=== PATIENT | female | born 1990 | race Caucasian/White ===

== ENCOUNTER 2023-06-29 10:54 | Inpatient (IN) ==
[2023-06-29] MEDS ORDERED: ONDANSETRON INJ 2 MG/ML 2 ML VIAL IV STA ×2 (11:44→15:32)
[2023-06-29] MEDS ORDERED: SODIUM CHLORIDE 0.9% 1,000 ML IV STA (11:44)
[2023-06-29] MEDS ORDERED: KETOROLAC TROMETHAMINE 15 MG/ML VIAL IV STA (11:44)
[2023-06-29] MEDS ORDERED: MoRPHine SULFATE 4 MG/ML 1 ML CARP\\VIAL IV STA ×2 (11:44→13:13)
[2023-06-29] MEDS ORDERED: PROMETHAZINE 6.25 MG/50.25 ML BAG IV STA (11:45)
[2023-06-29 12:02] LABS: Basophils # (auto) 0.06 K/uL (0.00-0.20); Basophils % (auto) 0.6 %; Hematocrit (blood only) 44.5 % (37.0-47.0); Immature Granulocytes # (auto) 0.04 K/uL (0.01-0.20); Immature Granulocytes % (auto) 0.4 %; Lymphocytes # (auto) 1.97 K/uL (1.20-3.40); Lymphocytes % (auto) 18.9 %; Mean Corpuscular Hemoglobin 29.9 pg (25.0-34.0); Mean Corpuscular Hgb Conc 33.7 g/dL (32.0-36.0); Mean Corpuscular Volume 88.6 fL (80.0-100.0); Mean Platelet Volume 10.7 fL (9.4-12.4); Monocytes # (auto) 0.91 K/uL (0.11-0.59); Monocytes % (auto) 8.7 %; Neutrophils # (auto) 7.34 K/uL (1.40-6.50); Neutrophils % (auto) 70.4 %; Platelet Count 567 K/uL (130-400); RDW Coefficient of Variation 12.4 % (11.5-14.5); RDW Standard Deviation 40.4 fL (36.4-46.3); Red Blood Count 5.02 M/uL (4.20-5.40); White Blood Count 10.42 K/ul (4.8-10.8)
--- NOTE | 2023-06-29 12:10 | Emergency Department Note ---
Impression & Plan Acute left flank pain, Renal colic, Vomiting, UTI (urinary tract infection), Hypokalemia ED Provider Note NAME: LEYLA MONTANEZ AGE: 33 SEX: F : 1990 ARRIVES VIA: Walk-In INFORMANT: [Patient] ED PROVIDER(S): [Juan Abreu MD] CHIEF COMPLAINT: Flank pain HISTORY OF PRESENT ILLNESS: The patient is a 33-year-old female who presents to the ER with left flank pain and some nausea and vomiting that began at 530 this morning, about 6 hours ago. The patient states she took some Aleve which helped for a while but the pain has returned. She has noticed some slight cough lately. There has been no fever, no urinary complaints. She has not fallen or suffered trauma. She thinks that the left flank pain is worse with certain movements. She has a history of ovarian cysts as well as kidney stones. Last menstrual cycle was about a week ago. PMHx/PSHx/Social Hx: See Below PHYSICAL EXAM: GENERAL: Patient is in mild distress from pain. HEENT: No acute trauma, normocephalic atraumatic, mucous membranes moist, no nasal congestion. NECK: No stridor, no adenopathy, no meningismus, trachea is midline. LUNGS: Clear to auscultation bilaterally, no wheeze, no rhonchi, breath sounds equal. HEART: Without murmurs gallops or rubs, regular rate and rhythm. ABDOMEN: Soft, mildly tender along the entire left side of the abdomen, no distention or peritonitis. EXTREMITIES: No cyanosis, full range of motion of all the joints without pain or difficulty. NEUROLOGIC: Oriented x 3, no acute motor or sensory deficits, no focal weakness. SKIN: No jaundice, no diaphoresis. Back: Left flank discomfort to palpate and percuss as well as move. DIFFERENTIAL DIAGNOSIS: Renal colic, pneumonia, musculoskeletal pain, ovarian cyst, hydronephrosis, UTI, among others. EMERGENCY DEPARTMENT PROCEDURES: MEDICAL DECISION MAKING: There is no leukocytosis or concerning anemia. Platelet count is somewhat elevated at 567. Potassium was low at 3, no renal failure. No concerning liver enzyme elevation. No evidence for pancreatitis. testing was negative. Urinalysis shows potential infection versus contamination. Abdominal and pelvis CT shows a distal left ureteral stone causing hydronephrosis. No acute surgical process by CT imaging. Chest x-ray did not show pneumonia, pneumothorax or free air. On exam, the patient was in pain and nauseated. She had left flank discomfort with palpation, percussion and movement. The patient received IV saline, 1.5 L. She was given oral Flomax to help with stone passage. She received IV Phenergan, IV Zofran, IV potassium, IV Toradol. She was given IV morphine as needed for pain control. She was given IV ceftriaxone for the potential UTI. Patient was here for several hours and persisted with pain and nausea despite numerous medications administered. I do think she requires a hospital stay for symptom control. Of note, because of the potential UTI coupled with the ureteral stone, I did contact Dr. Lugo of urology. No emergent urologic intervention felt warranted unless the patient would become unstable. I did speak with the telephonic nurse case manager, I spoke with the on-call hospitalist. The patient is in no condition to be discharged home. Prior/Outside records/notes reviewed: ED visit note from 04/22/2023 discussing her presentation for an ovarian cyst. Imaging/x-ray results per my interpretation: Chest x-ray does not show mediastinal widening, pneumonia or free air. There is no pneumothorax. Chronic Medical/Social conditions affecting care: Obesity. Care/Management discussed with: Case management, the on-call hospitalist. Urology-Dr. Lugo. Level of care consideration(s): After review of the information above and other included data: --I believe the patient requires escalation of care to admission DISPOSITION: Admission with urology consult Past Med/Surg History Medical History Hyperinsulinemia Iron deficiency Polycystic ovaries Obesity, morbid, BMI 40.0-49.9 HTN (hypertension) Kidney stones Stomach problems Surgical History Hx of cholecystectomy Family History Other Diabetes Social History Smoking Status: Never smoker Preferred Language: Cambodian Feels Safe at Home: Yes Allergies Allergies Allergy/AdvReac Type Severity Reaction Status Date / Time No Known Allergies Allergy Unverified 10/27/19 10:03 Home Meds Home Medications Medication Instructions Recorded Confirmed omeprazole 20 mg tablet,delayed 20 mg PO QAM 05/18/19 06/29/23 release amlodipine 5 mg tablet 5 mg PO QAM 06/29/23 06/29/23 hydrochlorothiazide 25 mg tablet 25 mg PO QAM 06/29/23 06/29/23 iron 1 tab PO .EVERY OTHER DAY 06/29/23 06/29/23 metformin 500 mg tablet 500 mg PO BID 06/29/23 06/29/23 metoprolol succinate 100 mg 100 mg PO QAM 06/29/23 06/29/23 tablet,extended release 24 hr Previous Rx's Medication Instructions Recorded ondansetron 4 mg disintegrating 4 mg PO Q8H PRN nausea and 10/27/19 tablet vomiting #10 tabs Results & Data (ED) Vital Signs Vital Signs - 24 hr 06/29/23 11:16 06/29/23 11:31 06/29/23 11:34 Temperature 36.4 C L Temperature Source Temporal Artery Scan Pulse Rate 87 87 Pulse Rate from SpO2 Sensor Respiratory Rate 16 16 Respiratory Effort / Characteristics Non-Labored Spontaneous Respiratory Depth Normal Blood Pressure 182/124 H 136/85 Blood Pressure Mean 143 107 Pulse Oximetry 100 Oxygen Delivery Method Room Air Sepsis Recent Fever Within 48 Hours No Sepsis New/Unexplained Change in Mental Status No Sepsis Action Taken by Nursing No Action Required 06/29/23 11:34 06/29/23 11:37 06/29/23 12:00 Temperature Temperature Source Pulse Rate 92 H 90 86 Pulse Rate from SpO2 Sensor 91 H 88 Respiratory Rate 13 23 Respiratory Effort / Characteristics Respiratory Depth Blood Pressure Blood Pressure Mean Pulse Oximetry 100 100 Oxygen Delivery Method Sepsis Recent Fever Within 48 Hours Sepsis New/Unexplained Change in Mental Status Sepsis Action Taken by Nursing 06/29/23 12:30 06/29/23 13:00 06/29/23 13:30 Temperature Temperature Source Pulse Rate 71 67 89 Pulse Rate from SpO2 Sensor 71 67 90 Respiratory Rate 17 15 22 Respiratory Effort / Characteristics Respiratory Depth Blood Pressure Blood Pressure Mean Pulse Oximetry 95 97 97 Oxygen Delivery Method Sepsis Recent Fever Within 48 Hours Sepsis New/Unexplained Change in Mental Status Sepsis Action Taken by Nursing 06/29/23 14:00 06/29/23 14:30 06/29/23 14:30 Temperature Temperature Source Pulse Rate 84 Pulse Rate from SpO2 Sensor 84 97 H Respiratory Rate 16 Respiratory Effort / Characteristics Respiratory Depth Blood Pressure 138/89 Blood Pressure Mean 116 Pulse Oximetry 94 99 Oxygen Delivery Method Sepsis Recent Fever Within 48 Hours Sepsis New/Unexplained Change in Mental Status Sepsis Action Taken by Nursing 06/29/23 15:00 06/29/23 15:30 06/29/23 16:00 Temperature Temperature Source Pulse Rate Pulse Rate from SpO2 Sensor 95 H 104 H 102 H Respiratory Rate 18 Respiratory Effort / Characteristics Respiratory Depth Blood Pressure Blood Pressure Mean Pulse Oximetry 96 96 95 Oxygen Delivery Method Sepsis Recent Fever Within 48 Hours Sepsis New/Unexplained Change in Mental Status Sepsis Action Taken by Nursing 06/29/23 16:30 06/29/23 17:00 06/29/23 17:40 Temperature Temperature Source Pulse Rate 74 Pulse Rate from SpO2 Sensor 96 H 93 H Respiratory Rate 20 20 Respiratory Effort / Characteristics Respiratory Depth Blood Pressure 140/84 108/82 Blood Pressure Mean 102 Pulse Oximetry 98 94 98 Oxygen Delivery Method Room Air Sepsis Recent Fever Within 48 Hours Sepsis New/Unexplained Change in Mental Status Sepsis Action Taken by Shelter Medications Current Medication List: was personally reviewed by me Laboratory Data Attestation: I reviewed the patient's lab results. 06/29/23 11:25 06/29/23 11:25 Lab Results 06/29/23 06/29/23 Range/Units 11:25 14:30 WBC 10.42 (4.8-10.8) K/ul RBC 5.02 (4.20-5.40) M/uL Hgb 15.0 (12.0-16.0) g/dl Hct 44.5 (37.0-47.0) % MCV 88.6 (80.0-100.0) fL MCH 29.9 (25.0-34.0) pg MCHC 33.7 (32.0-36.0) g/dL RDW Std Deviation 40.4 (36.4-46.3) fL RDW Coeff of Ashkan 12.4 (11.5-14.5) % Plt Count 567 H (130-400) K/uL MPV 10.7 (9.4-12.4) fL Immature Gran % (Auto) 0.4 % Neut % (Auto) 70.4 % Lymph % (Auto) 18.9 % [place] % (Auto) 8.7 % Eos % (Auto) 1.0 % Baso % (Auto) 0.6 % Neut # (Auto) 7.34 H (1.40-6.50) K/uL Lymph # (Auto) 1.97 (1.20-3.40) K/uL [place] # (Auto) 0.91 H (0.11-0.59) K/uL Eos # (Auto) 0.10 (0.00-0.50) K/uL Baso # (Auto) 0.06 (0.00-0.20) K/uL Immature Gran # (Auto) 0.04 (0.01-0.20) K/uL Sodium 139 (136-145) mmol/L Potassium 3.0 L (3.5-5.1) mmol/L Chloride 99 (98-107) mmol/L Carbon Dioxide 30 (21-32) mmol/L Anion Gap 10 (3-11) BUN 15 (6-23) mg/dl Creatinine 0.84 (0.6-1.2) mg/dl Est Cr Clr Drug Dosing 137.8 ml/min Est GFR ( Amer) 105.8 ml/min Est GFR (Non-Af Amer) 91.3 ml/min BUN/Creatinine Ratio 17.9 (10-20) Glucose 104 H (70-99(Fasting)) mg/dl Calcium 9.0 (8.6-10.3) mg/dl Total Bilirubin 0.8 (0.2-1.0) mg/dl AST 16 (13-39) U/L ALT 22 (7-52) U/L Alkaline Phosphatase 75 (34-104) U/L Total Protein 7.7 (6.0-8.3) gm/dl Albumin 4.0 (3.4-5.0) gm/dl Globulin 3.7 (2.5-4.0) gm/dl Albumin/Globulin Ratio 1.1 (0.9-2) Lipase 39 (11-82) U/L HCG, Qual Negative (Negative) Urine Color [place] Urine Appearance Turbid A (Clear) Urine pH 6.0 (4.5-7.5) Ur Specific [place] 1.027 (1.000-1.030) Urine Protein 2+ H (Negative) Urine Glucose (UA) Negative (Negative) Urine Ketones 1+ H (Negative) Urine Blood 3+ H (Negative) Urine Nitrite Negative (Negative) Urine Bilirubin 1+ H (Negative) Urine Urobilinogen Negative (Negative) Ur Leukocyte Esterase 3+ H (Negative) Urine WBC (Auto) >30 H (0-5) /hpf Urine RBC (Auto) >30 H (0-4) /hpf U Hyaline Cast (Auto) Not Reportable U Epithel Cells (Auto) >30 H (0-5) /lpf Urine Bacteria (Auto) 1+ H (Negative) Administered Medications Discontinued Medications Sodium Chloride (Nss) 1,000 mls @ 999 mls/hr IV .Q1H1M STA Stop: 06/29/23 12:44 Last Infusion: 06/29/23 13:46 Dose: Infused Documented By: Admin: 06/29/23 11:58 Dose: 999 mls/hr Documented By: HS Promethazine HCl (Phenergan) 6.25 mg in 50.25 mls @ 201 mls/hr IV NOW STA Stop: 06/29/23 11:59 Last Infusion: 06/29/23 13:46 Dose: Infused Documented By: Admin: 06/29/23 11:59 Dose: 201 mls/hr Documented By: HS Potassium Chloride (K Evert / Wtr) 10 meq in 100 mls @ 100 mls/hr IV ONE ONE Stop: 06/29/23 13:44 Last Infusion: 06/29/23 13:55 Dose: Infused Documented By: Admin: 06/29/23 12:55 Dose: 100 mls/hr Documented By: HS Sodium Chloride (Nss) 500 mls @ 999 mls/hr IV .Q31M ONE Stop: 06/29/23 13:43 Last Infusion: 06/29/23 14:22 Dose: Infused Documented By: Admin: 06/29/23 13:51 Dose: 999 mls/hr Documented By: MT Ceftriaxone Sodium (Rocephin) 2,000 mg in 50 mls @ 100 mls/hr IV NOW STA Stop: 06/29/23 16:03 Last Infusion: 06/29/23 17:36 Dose: Infused Documented By: Admin: 06/29/23 15:38 Dose: 100 mls/hr Documented By: HS Ketorolac Tromethamine (Ketorolac Tromethamine 15 Mg/Ml Vial) 15 mg IV NOW STA Stop: 06/29/23 11:45 Last Admin: 06/29/23 11:58 Dose: 15 mg Documented By: HS Morphine Sulfate (Morphine Sulfate 4 Mg/Ml 1 Ml Carp\Vial) 4 mg IV NOW STA Stop: 06/29/23 11:45 Last Admin: 06/29/23 11:59 Dose: 4 mg Documented By: HS Morphine Sulfate (Morphine Sulfate 4 Mg/Ml 1 Ml Carp\Vial) 4 mg IV NOW STA Stop: 06/29/23 13:14 Last Admin: 06/29/23 13:50 Dose: 4 mg Documented By: MT Ondansetron HCl (Ondansetron Inj 2 Mg/Ml 2 Ml Vial) 4 mg IV NOW STA Stop: 06/29/23 11:45 Last Admin: 06/29/23 11:58 Dose: 4 mg Documented By: HS Ondansetron HCl (Ondansetron Inj 2 Mg/Ml 2 Ml Vial) 4 mg IV NOW STA Stop: 06/29/23 15:33 Last Admin: 06/29/23 15:36 Dose: 4 mg Documented By: HS Tamsulosin HCl (Tamsulosin Hcl 0.4 Mg Cap) 0.4 mg PO NOW ONE Stop: 06/29/23 13:14 Last Admin: 06/29/23 13:50 Dose: 0.4 mg Documented By: MT Imaging Data Radiologist's Impression: Abdomen/Pelvis CT 06/29/23 11:[address] WITHOUT CONTRAST CT DOSE: 1648.11 mGy.cm HISTORY: left flank pain TECHNIQUE: Multiaxial CT images of the abdomen and pelvis were performed without contrast. A dose lowering technique was utilized adhering to the principles of ALARA. COMPARISON STUDY: Abdomen and pelvis CT 04/22/2023. FINDINGS: Mild elevation of the right hemidiaphragm with right basilar linear densities consistent with subsegmental atelectasis. This remains unchanged. Stable 4 mm subpleural nodule on the right minor fissure on image 20. No pneumoperitoneum. No pneumatosis. No acute fractures. Mild hepatic steatosis. Cholecystectomy. The unenhanced pancreas, spleen, and adrenal glands are unremarkable. No renal calculi. There is mild left hydronephrosis secondary to an obstructing 4 mm stone within the left ureteropelvic junction on image 212. No retroperitoneal lymphadenopathy. Normal caliber abdominal aorta. The bladder is decompressed and not well evaluated. The uterus is unremarkable. Hypodense lesions seen within the bilateral ovaries/adnexa, unchanged. The largest on the right measures approximately 3.9 cm. These favor ovarian cysts as seen on the prior pelvic ultrasound. Smaller hypodense lesions have a tubular appearance. Therefore, this could represent bilateral hydrosalpinges. No pelvic free fluid. No bowel wall thickening or obstruction. Normal appendix. IMPRESSION: 1. A 4 mm obstructing stone within the left ureteropelvic junction resulting in mild left hydronephrosis. 2. Hepatic steatosis. 3. Cholecystectomy. 4. Stable 4 mm subpleural nodule on the right minor fissure. This is indeterminate but likely benign given the patient's age. 5. Hypodense lesions seen within the bilateral ovaries/adnexa, unchanged. The largest on the right measures approximately 3.9 cm. These favor ovarian cysts as seen on the prior pelvic ultrasound. Smaller hypodense lesions have a tubular appearance. Therefore, this could represent bilateral hydrosalpinges. ACT 112: Negative or not required by law. Electronically signed by: Don Chua M.D. 06/29/2023 12:58 PM Chest X-Ray 06/29/23 11:44 XR chest 1V portable HISTORY: left flank pain COMPARISON: Chest 02/26/2010. FINDINGS: No pneumothorax. No pleural effusions. The heart is normal in size. The left lung is clear. There is elevation of the right hemidiaphragm with right basilar linear densities consistent with subsegmental atelectasis. IMPRESSION: Elevated right hemidiaphragm with right basilar subsegmental atelectasis. ACT 112: Negative or not required by law. Electronically signed by: Don Chua M.D. 06/29/2023 1:36 PM Discharge Plan Visit Data Chief Complaint: Flank Pain Stated Complaint: LEFT SIDE PAIN, VOMTING ED Provider: Juan Abreu Discharge Problem: Acute left flank pain, Renal colic, Vomiting, UTI (urinary tract infection), Hypokalemia Patient Disposition: Admitted As Inpatient Condition: Fair Forms Stand Alone Forms: [employer] Prescriptions Prescriptions: No Action omeprazole 20 mg Tablet,Delayed Release (Dr/Ec) 20 mg PO QAM ondansetron 4 mg tablet,disintegrating 4 mg PO Q8H PRN (Reason: nausea and vomiting) Qty: 10 0RF metformin 500 mg tablet 500 mg PO BID metoprolol succinate 100 mg tablet extended release 24 hr 100 mg PO QAM amlodipine 5 mg tablet 5 mg PO QAM hydrochlorothiazide 25 mg tablet 25 mg PO QAM iron 1 tab PO .EVERY OTHER DAY Referrals Referrals: Phil Pardo MD [Primary Care Provider] - Discharge Problem: Vomiting Qualifiers: Vomiting type: unspecified Nausea presence: with nausea Qualified Code(s): R 11.2 - Nausea with vomiting, unspecified UTI (urinary tract infection) Qualifiers: Urinary tract infection type: acute cystitis Hematuria presence: with hematuria Qualified Code(s): N30.01 - Acute cystitis with hematuria
[2023-06-29 12:13] LABS: Albumin Globulin Ratio 1.1 (0.9-2); BUN Creatinine Ratio 17.9 (10-20); Bilirubin,Total 0.8 mg/dl (0.2-1.0); Creatinine Clr Calc Pharmacy 137.8 ml/min; Est GFR (African American) 105.8 ml/min; Est GFR (Non-African American) 91.3 ml/min; Globulin 3.7 gm/dl (2.5-4.0); Total Protein 7.7 gm/dl (6.0-8.3)
[2023-06-29 12:16] LABS: Pregnancy Test, Serum Negative (Negative)
[2023-06-29] MEDS ORDERED: POTASSIUM CHLORIDE / WTR 10 MEQ/100 ML PLCT IV ONE (12:45)
--- NOTE | 2023-06-29 13:00 | CT Scan Report ---
ABDOMEN AND PELVIS CT WITHOUT CONTRAST CT DOSE: 1648.11 mGy.cm HISTORY: left flank pain TECHNIQUE: Multiaxial CT images of the abdomen and pelvis were performed without contrast. A dose lo wering technique was utilized adhering to the principles of ALARA. COMPARISON STUDY: Abdomen and pelvis CT 04/22/2023. FINDINGS: Mild elevation of the right hemidiaphragm with right basilar linear densities consistent wi th subsegmental atelectasis. This remains unchanged. Stable 4 mm subpleural nodule on the right minor fissure on image 20. No pneumoperitoneum. No pneumatosis. No acute fractures. Mild hepatic steatosis . Cholecystectomy. The unenhanced pancreas, spleen, and adrenal glands are unremarkable. No renal shahrzad culi. There is mild left hydronephrosis secondary to an obstructing 4 mm stone within the left ureter opelvic junction on image 212. No retroperitoneal lymphadenopathy. Normal caliber abdominal aorta. Th e bladder is decompressed and not well evaluated. The uterus is unremarkable. Hypodense lesions seen within the bilateral ovaries/adnexa, unchanged. The largest on the right measures approximately 3.9 c m. These favor ovarian cysts as seen on the prior pelvic ultrasound. Smaller hypodense lesions have a tubular appearance. Therefore, this could represent bilateral hydrosalpinges. No pelvic free fluid. No bowel wall thickening or obstruction. Normal appendix. IMPRESSION: 1. A 4 mm obstructing stone within the left ureteropelvic junction resulting in mild left hydronephro sis. 2. Hepatic steatosis. 3. Cholecystectomy. 4. Stable 4 mm subpleural nodule on the right minor fissure. This is indeterminate but likely benign given the patient's age. 5. Hypodense lesions seen within the bilateral ovaries/adnexa, unchanged. The largest on the right me asures approximately 3.9 cm. These favor ovarian cysts as seen on the prior pelvic ultrasound. Smalle r hypodense lesions have a tubular appearance. Therefore, this could represent bilateral hydrosalping es. ACT 112: Negative or not required by law. Electronically signed by: Don Chua M.D. 06/29/2023 12:58 PM
[2023-06-29] MEDS ORDERED: SODIUM CHLORIDE 0.9% 500 ML IV ONE (13:13)
[2023-06-29] MEDS ORDERED: TAMSULOSIN HCL 0.4 MG CAP PO ONE (13:13)
--- NOTE | 2023-06-29 13:37 | XRay Report ---
XR chest 1V portable HISTORY: left flank pain COMPARISON: Chest 02/26/2010. FINDINGS: No pneumothorax. No pleural effusions. The heart is normal in size. The left lung is clear. There is elevation of the right hemidiaphragm with right basilar linear densities consistent with carrion bsegmental atelectasis. IMPRESSION: Elevated right hemidiaphragm with right basilar subsegmental atelectasis. ACT 112: Negative or not required by law. Electronically signed by: Don Chua M.D. 06/29/2023 1:36 PM
[2023-06-29 14:52] LABS: Appearance Urine Turbid (Clear); Bacteria Urine Automated 1+ (Negative); Blood Urine 3+ (Negative); Color Urine Orange; Epithelial Cell Urine Auto >30 /lpf (0-5); Glucose Urine UA Negative (Negative); Ketones Urine 1+ (Negative); Leukocyte Esterase Urine 3+ (Negative); Nitrite Urine Negative (Negative); Protein Urine 2+ (Negative); RBC Urine Automated >30 /hpf (0-4); Specific Gravity Urine 1.027 (1.000-1.030); Urobilinogen Urine Negative (Negative); WBC Urine Automated >30 /hpf (0-5)
[2023-06-29 15:18] LABS: Bilirubin Urine 1+ (Negative)
[2023-06-29] MEDS ORDERED: cefTRIAXone SODIUM 2,000 MG/50 ML BAG IV STA (15:34)
--- NOTE | 2023-06-29 16:03 | History & Physical Report ---
Date of Service June 29, 2023 Assessment & Plan (1) Kidney stones: Plan: - Admit to med surg - Consult urology - UA appears to be grossly infected, follow urine culture, will order a urine straight cath per urology recs. - continue with IV antibiotics, BCx x 2 pending - Ceftriaxone IV started, will continue - CT abd/pelvis showing the 4 mm obstructing stone on the Left with hydronephrosis - Afebrile, WBC of 10.42 on admission. Cr and BUN are stable at 0.84/15. - Pain control ordered, NSS x 1 more L now. - Antiemetics ordered as pt is unable to tolerate po meds currently due to nausea (2) HTN (hypertension): Plan: - Metoprolol succinate 100 mg QAM to continue daily (3) Obesity, morbid, BMI 40.0-49.9: Plan: - Diet and exercise will need to be discussed prior to discharge. (4) Hypokalemia: Plan: - 3.0 on admission, will trend and add iv supplementation to total 50 meq as she is unable to tolerate po currently - Allow clear diet as tolerates (5) Polycystic ovaries: Plan: - Hx of such, has followed with Dr. Angulo as outpatient with director of corporate responsibility - Chronic, stable (6) Iron deficiency: Plan: - May continue iron supplementation (7) Hyperinsulinemia: Plan: - Last A1C was 5.3 on 05/04/23 - ISS with accuchecks achs while holding home metformin here DVT ppx:teds, scds Lines: 2 PIV FEN/GI: Cont NSS, clear liquids for now, urology is not planning on procedure at this time. Make NPO at midnight in case needs procedure tomorrow CODE: FULL Dispo: From home, likely to remain in the hospital x 1-2 days History of Present Illness Chief Complaint: Left flank pain Primary Care Provider: Phil Pardo MD This is a 33 yo F with PMHx UTI, morbid obesity with BMI of 44.7, hyperinsulinemia on metformin, HTN, iron deficiency, polycystic ovaries, who presents to the hospital with left flank pain. States she woke up with left sided flank pain around 0530 this morning which was associated with nausea and vomiting. She has proceeded to be vomiting throughout the day with waxing and waning pain. Pt took aleve this morning but didn't help. She was unable to take her other medications due to nausea. Mother is at bedside and supports the history. Pt notes that she previously had one kidney stone, but that this feels worse. Denies any fever, chills, but admits to having sweats. CT abd/pelvis reviewed and shows a 4 mm obstructing stone with mild left sided hydronephrosis. Afebrile, WBC of 10.42 on admission. Cr and BUN are stable at 0.84/15. Allergies Allergy/AdvReac Type Severity Reaction Status Date / Time No Known Allergies Allergy Unverified 10/27/19 10:03 Home Medications Medication Instructions Recorded Confirmed Type omeprazole 20 mg tablet,delayed 20 mg PO QAM 05/18/19 06/29/23 History release ondansetron 4 mg disintegrating 4 mg PO Q8H PRN nausea and 10/27/19 06/29/23 Rx tablet vomiting #10 tabs amlodipine 5 mg tablet 5 mg PO QAM 06/29/23 06/29/23 History hydrochlorothiazide 25 mg tablet 25 mg PO QAM 06/29/23 06/29/23 History iron 1 tab PO .EVERY OTHER DAY 06/29/23 06/29/23 History metformin 500 mg tablet 500 mg PO BID 06/29/23 06/29/23 History metoprolol succinate 100 mg 100 mg PO QAM 06/29/23 06/29/23 History tablet,extended release 24 hr Past Med/Surg History Medical History (Updated 06/29/23 @ 16:07 by Ellie Jerome PA-C) Hyperinsulinemia Iron deficiency Polycystic ovaries Obesity, morbid, BMI 40.0-49.9 HTN (hypertension) Kidney stones Stomach problems Surgical History Hx of cholecystectomy Family History Other Diabetes Social History Smoking Status: Never smoker Preferred Language: Russian Feels Safe at Home: Yes Review of Systems Review of Systems: Constitutional: No fever, sweats or chills Eyes: No diplopia, no worsening or blurred vision ENT: normal hearing, no trouble swallowing Respiratory: No cough, sputum, dyspnea at rest or on exertion Cardiovascular: No chest pain, tightness or palpitations Abdomen: + left sided flank pain, + nausea, +vomiting, denies diarrhea or constipation Musculoskeletal: No joint pain, calf pain, swelling Neurologic: No weakness, numbness/tingling, or balance problems Psychiatric: No anxiety or depression Skin: No rash or itch Physical Exam Physical Exam: General: awake, alert, no apparent distress, morbidly obese white female Head: Normocephalic, atraumatic ENT: PERRL, EOMI, no pharyngeal exudate, mucous membranes moist Chest: Clear to auscultation, on room air, no adventitious breath sounds Cardiac: Regular rate and rhythm, no murmur, no JVD, normal peripheral pulses, good capillary refill Abdominal: NABS x 4 quadrants, soft, nondistended, nontender to palpation, no rebound or guarding Back: CVA tenderness present on Left side Extremities: Normal inspection, no peripheral edema or erythema, calfs nontender to palpation Psych: Normal mood and affect Neuro: AAO x 3, strength intact bilaterally and rated 5/5, no motor deficits, speech is clear, no peripheral sensory deficits Results & Data Results & Data Vital Signs (Past 12 Hours) Vital Signs Temp Pulse Resp BP Pulse Ox O2 Del Method 06/29/23 15:00 18 96 06/29/23 14:30 138/89 06/29/23 14:30 99 06/29/23 14:00 84 16 94 06/29/23 13:30 89 22 97 06/29/23 13:00 67 15 97 06/29/23 12:30 71 17 95 06/29/23 12:00 86 23 100 06/29/23 11:37 90 06/29/23 11:34 92 H 13 100 06/29/23 11:34 136/85 06/29/23 11:31 87 16 06/29/23 11:16 36.4 C L 87 16 182/124 H 100 Room Air Laboratory Results 06/29/23 14:30 Urine Culture - Pending Urine,Clean Catch 06/29/23 06/29/23 14:30 11:25 WBC 10.42 RBC 5.02 Hgb 15.0 Hct 44.5 MCV 88.6 MCH 29.9 MCHC 33.7 RDW Std Deviation 40.4 RDW Coeff of Ashkan 12.4 Plt Count 567 H MPV 10.7 Immature Gran % (Auto) 0.4 Neut % (Auto) 70.4 Lymph % (Auto) 18.9 Hyde % (Auto) 8.7 Eos % (Auto) 1.0 Baso % (Auto) 0.6 Neut # (Auto) 7.34 H Lymph # (Auto) 1.97 Hyde # (Auto) 0.91 H Eos # (Auto) 0.10 Baso # (Auto) 0.06 Immature Gran # (Auto) 0.04 Sodium 139 Potassium 3.0 L Chloride 99 Carbon Dioxide 30 Anion Gap 10 BUN 15 Creatinine 0.84 Est Cr Clr Drug Dosing 137.8 Est GFR ( Amer) 105.8 Est GFR (Non-Af Amer) 91.3 BUN/Creatinine Ratio 17.9 Glucose 104 H Calcium 9.0 Total Bilirubin 0.8 AST 16 ALT 22 Alkaline Phosphatase 75 Total Protein 7.7 Albumin 4.0 Globulin 3.7 Albumin/Globulin Ratio 1.1 Lipase 39 HCG, Qual Negative Urine Color [place] Urine Appearance Turbid A Urine pH 6.0 Ur Specific [place] 1.027 Urine Protein 2+ H Urine Glucose (UA) Negative Urine Ketones 1+ H Urine Blood 3+ H Urine Nitrite Negative Urine Bilirubin 1+ H Urine Urobilinogen Negative Ur Leukocyte Esterase 3+ H Urine WBC (Auto) >30 H Urine RBC (Auto) >30 H U Hyaline Cast (Auto) Not Reportable U Epithel Cells (Auto) >30 H Urine Bacteria (Auto) 1+ H Diagnostic Findings Abdomen/Pelvis CT 06/29/23 11:[address] WITHOUT CONTRAST CT DOSE: 1648.11 mGy.cm HISTORY: left flank pain TECHNIQUE: Multiaxial CT images of the abdomen and pelvis were performed without contrast. A dose lowering technique was utilized adhering to the principles of ALARA. COMPARISON STUDY: Abdomen and pelvis CT 04/22/2023. FINDINGS: Mild elevation of the right hemidiaphragm with right basilar linear densities consistent with subsegmental atelectasis. This remains unchanged. Stable 4 mm subpleural nodule on the right minor fissure on image 20. No pneumoperitoneum. No pneumatosis. No acute fractures. Mild hepatic steatosis. Cholecystectomy. The unenhanced pancreas, spleen, and adrenal glands are unremarkable. No renal calculi. There is mild left hydronephrosis secondary to an obstructing 4 mm stone within the left ureteropelvic junction on image 212. No retroperitoneal lymphadenopathy. Normal caliber abdominal aorta. The bladder is decompressed and not well evaluated. The uterus is unremarkable. Hypodense lesions seen within the bilateral ovaries/adnexa, unchanged. The largest on the right measures approximately 3.9 cm. These favor ovarian cysts as seen on the prior pelvic ultrasound. Smaller hypodense lesions have a tubular appearance. Therefore, this could represent bilateral hydrosalpinges. No pelvic free fluid. No bowel wall thickening or obstruction. Normal appendix. IMPRESSION: 1. A 4 mm obstructing stone within the left ureteropelvic junction resulting in mild left hydronephrosis. 2. Hepatic steatosis. 3. Cholecystectomy. 4. Stable 4 mm subpleural nodule on the right minor fissure. This is indeterminate but likely benign given the patient's age. 5. Hypodense lesions seen within the bilateral ovaries/adnexa, unchanged. The largest on the right measures approximately 3.9 cm. These favor ovarian cysts as seen on the prior pelvic ultrasound. Smaller hypodense lesions have a tubular appearance. Therefore, this could represent bilateral hydrosalpinges. ACT 112: Negative or not required by law. Electronically signed by: Don Chua M.D. 06/29/2023 12:58 PM Chest X-Ray 06/29/23 11:44 XR chest 1V portable HISTORY: left flank pain COMPARISON: Chest 02/26/2010. FINDINGS: No pneumothorax. No pleural effusions. The heart is normal in size. The left lung is clear. There is elevation of the right hemidiaphragm with right basilar linear densities consistent with subsegmental atelectasis. IMPRESSION: Elevated right hemidiaphragm with right basilar subsegmental atelectasis. ACT 112: Negative or not required by law. Electronically signed by: Don Chua M.D. 06/29/2023 1:36 PM Code Status & VTE Plan Code Status Full code - discussed with pt and mother at bedside Supervising Physician Co-Signing Physician Notes I have seen and discussed the case with the collaborating MINNIE. I agree with the above H&P. I have reviewed and confirmed the patients medical history, the findings on physical examination, and the patients diagnosis and treatment plan with Queenie HARTMAN and agree with the information documented. In short, Ms. Ladd is a 33 year old woman with past medical history of DMTII, HTN, and morbid obesity admitted due to acute urinary tract infection iso obstructing nephrolithiasis. Labs also notable for K of 3.0. Exam revealed a very sickly looking woman, dry heaving, endorsing left flank pain with CVA tenderness. Plan #Obstructing nephrolithiasis #Acute urinary tract infection -Continue CTX, follow culutures -Urology consult for review/intervention, NPO Rest of plan as above.
[2023-06-29] MEDS ORDERED: PROCHLORPERAZINE 10 MG in SYRINGE 8 ML IV PRN (16:29)
[2023-06-29] MEDS ORDERED: CARBOHYDRATES FOR HYPOGLYCEMIA PO PRN (17:58)
[2023-06-29] MEDS ORDERED: GLUCAGON FOR INJ 1 MG VIAL SQ PRN (17:58)
[2023-06-29] MEDS ORDERED: SODIUM CHLORIDE 0.9% 1,000 ML IV SCH (17:58)
[2023-06-29] MEDS ORDERED: DEXTROSE 50% 50 ML SYRINGE IV PRN (17:58)
[2023-06-29] MEDS ORDERED: cefTRIAXone SODIUM 1,000 MG in DEXTROSE 5 % MINI-B 50 ML IV SCH (17:58)
[2023-06-29] MEDS ORDERED: ACETAMINOPHEN 325 MG TAB PO PRN (17:58)
[2023-06-29] MEDS ORDERED: GLUCOSE 10 TAB/TUBE PO PRN (17:58)
[2023-06-29] MEDS ORDERED: GLUCOSE 40% GEL 15 GM TUBE PO PRN (17:58)
[2023-06-29] MEDS ORDERED: ONDANSETRON INJ 2 MG/ML 2 ML VIAL IV PRN (17:58)
[2023-06-29] MEDS ORDERED: MoRPHine SULFATE 2 MG/ML CARP IV PRN (17:58)
--- OUTSIDE RECORDS SUMMARY | 2023-06-29 18:01 | External Medical Summary | Summary of Care ---
Author Name Unknown Organization [facility] Address [address] [place] [address] Phone [phone] Care Team Providers Care Tile Applicator Name Role Phone Phil Pardo MD Primary Care Provider [phone] Reason for Visit * Reason Comments Consultation * Evaluate & Treat - Unlimited Visits (Within 30 days (routine)) - Pending Review Specialty Diagnoses / Procedures Referred By Kimberly t Referred To Contact Obstetrics/Gynecology / Gynecology Obstetrics Diagnoses Cyst of ovary, unspecified laterality Deandra Cunha PA-C [address] [place] [address] Referral ID Status Reason Start Date Expiration Date Visits Requested Visits Authorized [id number] Pending Review Specialty Services Required [phone] Encounter Details Date Type Department Care Team (Late st Contact Info) Description 06/02/2023 2:00 PM EST Office Visit Gynecology/Obstetric s Toyin Shin [address] [place] [address] Prabha Angulo MD [address] [place] [id number] Bilateral ovarian cysts* Allergies No known active allergiesdocumented as of this encounter (statuses as of 06/02/2023) Medications Medication Sig Dispensed Refills Start Date End Date Status omeprazole (PRILOSEC) 20 MG CPDR Take 1 Capsule by mouth in the morning. 0 Active Ferrous Sulfate (IRON) 325 (65 Fe) MG TABS Take 1 Tablet by mouth every other day. 0 Active Triamcinolone Acetonide 0.1 % External Cream (Aristocort) Apply to affected skin behind the ears twice per day as needed 45 g 1 12/07/2022 Active amLODIPine Besylate 5 MG Oral Tablet (Norvasc) TAKE 1 TABLET BY MOUTH IN THE MORNING 90 Tablet 2 02/20/2023 Active Metoprolol Succinate ER 100 MG Oral Tablet Extended Release 24 Hour (toPROL XL) TAKE 1 TABLET BY MOUTH IN THE MORNING 90 Tablet 1 03/05/2023 Active hydroCHLOROthiazide 25 MG Oral Tablet (Hydrodiuril) TAKE 1 TABLET BY MOUTH ONCE DAILY IN THE MORNING 90 Tablet 1 03/05/2023 Active metFORMIN HCl 500 MG Oral Tablet (Glucophage) Take 1 Tablet by mouth 2 times a day with morning and evening meals. 60 Tablet 5 05/05/2023 Active documented as of this encounter (statuses as of 06/02/2023) Active Problems Problem Noted Date Diagnosed Date Hyperinsulinemia 05/05/2023 Polycystic ovaries 05/01/2023 HTN, goal below 140/90 06/08/2022 Iron deficiency 06/08/2022 Gastroesophageal reflux disease 06/08/2022 Body mass index (BMI) of 50.0 to 59.9 in adult 0 11/17/2020 Overview: Per Obesity protocol ADVANCE DIRECTIVE INFORMATION 08/09/2005 Overview: Not applicable (under age of 18) FLAT FOOT, FLEXIBLE 04/04/2005 Other psoriasis 03/06/2002 documented as of this encounter (statuses as of 06/02/2023) Resolved Problems Problem Noted Date Diagnosed Date Resolved Date Acute swimmer's ear of right side 01/12/2018 08/04/2021 INFEC OTITIS EXTERNA, RIGHT 01/18/2010 08/04/2021 Otalgia 01/18/2010 08/04/2021 TENOSYNOVITIS FOOT, RIGHT MEDIAL 04/04/2005 08/04/2021 OVERWEIGHT 04/04/2005 2016 OBESITY, UNSPECIFIED 05/05/2003 022 documented as of this encounter (statuses as of 06/02/2023) Immunizations Name Administration Dates Next Due COVID-19 mRNA, LNP-s, No Pre serve, 2-Dose Series (Pfizer) 07/02/2021,10/17/2020,09/26/2020 HPV Vaccine, 4-Valent 11/06/2007,07/04/2007,04/09 Meningococcal Conjugate Vacc ine (Menactra/Menveo) 04/27/2007 PPD 05/20/2011,05/15/2007,05/01/2007 SEASONAL INFLUENZA, PF, 6 M & Above, IM , (FLULAVAL or FLUZONE) 04/29/2023,04/29/2023,04/16/2022,03/10,04/08/2020,04/01/2019,05/18/20 18 Seasonal Influenza, Quadriva lent, No Preserve, IM 06/12/2015 06/12/2016 Seasonal Influenza, Split, I IV3, With Preserve, Inj 05/09/2011,05/07/2010 TDAP (age 10 and older)(Boostrix) 2016 02/07/2026 TDAP (age 11 and older)(Adacel) 03/23/2006 Varicella Vaccine (Chicken Pox) 04/27/2007 documented as of this encounter Social History Tobacco Use Types Packs/Day Years Used Date Smoking Tobacco: Never Passive Smoke Exposure: Never Smokeless Tobacco: Never Comments:non smoking househo ld Alcohol Use Standard Drinks/Week Comments No 0 (1 standard drink = 0.6 oz pur e alcohol) PHQ-2 Answer Date Recorded PHQ Adult Total Score 0 06/08/2022 Hunger Vital Sign Answer Date Recorded Within the past 12 months, y ou worried that your food would run out before you got the money to buy more. Never true 06/08/20 22 Within the past 12 months, t he food you bought just didn't last and you didn't have money to get more. Never true 06/08/2022 Sex and Gender Information Value Date Recorded Sex Assigned at Female 05/22/2019 6:01 PM EST Gender Identity Female 05/22/2019 6:01 PM EST Sexual Orientation Straight 05/22/2019 6: 01 PM EST Job Start Date Occupation Industry Not on file Not on file Not on file documented as of this encounter Last Filed Vital Signs Vital Sign Reading Time Taken Comments Blood Pressure 144/82 06/02/2023 1:57 PM EST Pulse - - Temperature - - Respiratory Rate - - Oxygen Saturation - - Inhaled Oxygen Concentration - - Weight 134.7 kg (297 lb) 06/02/2023 1:57 PM EST Height 160 cm (5' 3") 06/02/2023 1:57 PM EST Body Mass Index 52.61 06/02/2023 1:57 PM EST documented in this encounter Progress Notes * Prabha Angulo MD - 06/02/2023 2:21 PM EST Patient Name: Khloe Ladd Patient New Patient referred by Deandra Cunha PA-C Reason for Visit Bilateral ovarian cysts CC: Bilateral ovarian cysts Context: (HPI) 33 year old with LMP 05/22/2023 presents for ED follow-up. Patient presented tot ED on 04/22/2023 with blood in her stool and right flank pain. Patient had an ultrasound which revealed bilateral ovarian cysts. No etiology noted for Patient's symptoms. Patient report no abdominal or pelvic pain since the ED visit. Patient has regular monthly menses with heavy flow. Denies intermenstrual bleeding. Denies abnormal vaginal discharge. Denies urinary symptoms. Past Medical Hx: Past Medical History: Diagnosis Date Obesity, BMI not known Past Surgical Hx: Past Surgical History: Procedure Laterality Date LAPAROSCOPY; CHOLECYSTECTOMY 03/02/10 Laparoscopic cholecystectomy with intraoperative cholangiogram at [facility] - Dr. 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 Tobacco Use Smoking status: Never Passive exposure: Never Smokeless tobacco: Never Tobacco comments: non smoking household Substance and Sexual Activity Alcohol use: No Drug use: No Sexual activity: Never Social Determinants of Health Food Insecurity: No Food Insecurity (06/08/2022) Hunger Vital Sign Worried About Running Out of Food in the Last Year: Never true Ran Out of Food in the Last Year: Never true Allergy: Review of patient's allergies indicates: No Known Allergies Family HX: Family History Problem Relation Age of Onset Hypertension Mother Hypertension Father Diabetes Grandfather (Paternal) ROS: Constitutional: no weight loss, no weakness, and no fatigue Eyes: no worsening of vision ENT: no hearing loss, no congestion Resp: no cough, no sputum, no wheezing, and no SOB GI: no pain, no heartburn, no diarrhea, no constipation Musculoskeletal: no significant joint or muscle pain and no swelling Female : no dysuria, no abnormal vaginal bleeding, no vaginal discharge, and + abnormally heavy periods Neuro: no memory loss and no weakness Psych: denies feeling down, depressed or hopeless in past month, denies being bothered by little interest or pleasure in doing things in past month, and no insomnia Heme: no fever, no chills, no sweats, and no bleeding/bruising Endo: no unplanned weight change Skin: no rash, no itching, and no new/changing skin lesions LABS: Results for orders placed or performed in visit on 05/04/23 INSULIN Result Value Ref Range Insulin 38 (H) 3 - 25 uU/mL HEMOGLOBIN A1C Result Value Ref Range Hemoglobin A1C 5.3 4.0 - 5.6 % Estimated Average Glucose 105 <126 mg/dL COMPREHENSIVE METABOLIC PANEL Result Value Ref Range BUN 12 6 - 20 mg/dL Creatinine 0.7 0.5 - 1.0 mg/dL Estimated Glomerular Filtration Rate >90 >=60 mL/min Sodium 140 135 - 146 mmol/L Potassium 3.8 3.5 - 5.1 mmol/L Chloride 100 98 - 107 mmol/L CO2 26 22 - 32 mmol/L Anion Gap 14 7 - 15 mmol/L Glucose 94 70 - 120 mg/dL Albumin 3.6 (L) 3.8 - 5.0 g/dL AST 15 10 - 35 U/L Alkaline Phosphatase 71 35 - 130 U/L Bilirubin, Total 0.7 <=1.2 mg/dL Calcium 9.1 8.4 - 10.2 mg/dL Protein 6.4 6.0 - 8.3 g/dL ALT 22 10 - 35 U/L LIPID PANEL WITH DIRECT LDL IF TG IS HIGH Result Value Ref Range Triglycerides 125 <=174 mg/dL Cholesterol 183 <200 mg/dL HDL Cholesterol 47 (L) >49 mg/dL Non-HDL Cholesterol 136 <=159 mg/dL LDL Cholesterol 111 <=129 mg/dL CBC Result Value Ref Range WBC 8.30 4.00 - 10.80 K/uL RBC 4.23 3.85 - 5.15 M/uL HGB 13.3 12.0 - 15.3 g/dL HCT 39.4 36.0 - 45.2 % MCV 93.1 81.5 - 97.5 fL MCH 31.4 27.0 - 34.0 pg MCHC 33.8 32.0 - 36.0 g/dL RDW 13.0 11.5 - 15.5 % PLT 452 (H) 140 - 400 K/uL MPV 10.6 6.6 - 11.1 fL DIFFERENTIAL, AUTOMATED Result Value Ref Range WBC 8.30 4.00 - 10.80 K/uL Neutrophils % 56.0 40.0 - 75.0 % Lymphocytes % 29.3 18.0 - 42.0 % Monocytes % 11.4 (H) 1.0 - 11.0 % Eosinophils % 2.9 0.0 - 6.0 % Basophils % 0.4 0.0 - 2.0 % Absolute Neutrophils 4.65 1.80 - 7.70 K/uL Absolute Lymphocytes 2.43 1.00 - 4.80 K/ul Absolute Monocytes 0.95 0.00 - 1.10 K/uL Absolute Eosinophils 0.24 0.00 - 0.70 K/uL Absolute Basophils 0.03 0.00 - 0.20 K/uL Pelvic Sonogram; Done Radiology at [facility] ED Uterus: 9.1 x 4.7 x 4.2 Lt ovary: Multiple cysts measure up to 3.7 cm Right ovary: Multiple cysts measure up to 7 mm Endometrial linin mm Comment: flow identified in bilateral ovaries. Evaluation limited due to lack of normal ovarian tissue due to extensive cysts PHYSICAL EXAMINATION Well developed. Well nourishes white female in no acute distress Vital signs BP 144/82 | Ht 1.6 m (5' 3") | Wt 134.7 kg (297 lb) | LMP 05/22/2023 | BMI 52.61 kg/m | BSA 2.45 m HEENT : WNL Neurologic: grossly intact Extremity: No Cyanoses, clubbing or edema. No lesions on either extremeties Psych: Alert, awake and oriented X 3. Normal gait A/P Bilateral ovarian cysts (Primary): Patient asymptomatic. Discussed with Patient that cysts are small and appear benign in nature. Plan to continue with conservative management. If pelvic pain occurs,can repeat imaging. All questions answered Follow Up: Return if symptoms worsen or fail to improve. Prabha Angulo MD 06/02/2023 2:21 PM Gynecology/Obstetrics [address] [place] [address] documented in this encounter Nursing Notes * Jolie Nuñez LPN - 06/02/2023 2:04 PM EST Was recently in the ER d/t unrelated concerns. Extensive BL ovarian cysts noted on imaging. Does have heavy menses, otherwise asymptomatic. documented in this encounter Plan of Treatment Upcoming Encounters Date Type Department Care Team (Late st Contact Info) Description 08/04/2023 2:15 PM EST Office Visit Hematology/Oncology [facility] [address] [place] [address] [place] Solomon [facility] [address] [address] 12/11/2023 11:40 AM EDT Office Visit [facility] [address] [place] [id number] Phil Pardo MD [address] [place] [address] Scheduled Referrals Name Type Priority Associated Diagnoses Orde r Schedule PALLET ASSEMBLER REFERRAL OP Referral Within 30 days (routine) Cyst of ovary, unspecified laterality Ordered: 04/26/2023 Health Maintenance Due Date Last Done Comments HIV Screening 2005 Hepatitis C Screening 02/09/2008 Pap Smear 04/21/2019 04/21/2016, 09/08, 10/03/2013 (Done elsewhere) Cervical Cancer Screening 02/09/2020 HPV/Co-Test 02/09/2020 COVID-19 Vaccine ( season) 2023 07/02/2021, 10/17/2020, 09/26/2020 *NEPHROLOGY REFERRAL DUE TO RESISTANT HTN 05/04/2023 Depression Screening 06/08/2023 06/08/2022 GFR 05/04/2024 05/04/2023, 12/08, 01/18/2022, Additional history exists Albumin/Creatinine Ratio 12/23/2025 12/23/2022 DTaP,Tdap,and Td Vaccines (7 - Td or Tdap) 02/07/2026 2016, 03/23/2006, 09/06/1993, Additional history exists Hepatitis B Completed 11/13/1992, 04/11, 04/08/1992 MENINGOCOCCAL (MENACTRA/MENVEO) Completed 04/27/2007 GARDASIL-HPV IMMUNIZATION SERIES Completed 11/06/2007, 07/04/2007, 04/27/2007 Influenza Vaccine (FLU shot) Completed , 04/29/2023, 04/16/2022, Additional history exists Pneumococcal Vaccine: Pediatrics (0 to 5 Years) and At-Risk Patients (6 to 64 Years) Aged Out No longer eligible based on patient's age to complete this topic documented as of this encounter Medical Devices Not on filedocumented as of this encounter Visit Diagnoses Diagnosis Bilateral ovarian cysts- Primary Other and unspecified ovarian cyst documented in this encounter Care Teams Tile Applicator Relationship Specialty Start Date End Date Phil Pardo MD [address] [place] [address] PCP - General Family Medicine 08/04/21 documented as of this encounter
--- OUTSIDE RECORDS SUMMARY | 2023-06-29 18:02 | External Medical Summary ---
Author Name Unknown Address Unknown Organization [id number]:[facility] [place] - [address] [facility] [address] Laboratory Report Ordering Provider Test Date Status DINH KAUFFMAN 05/04/2023 09:25:44 Final Observation Date Value Abnormality Reference (Units ) Status HbA1C 05/04/2023 09:25:44 5.3 4.0-5.6 (% ) Final The use of HbA1c to monitor glycemic status is based on normal hemoglobin and HbA composition. This test should not be used in patients with abnormal hemoglobin that affects the half life of the red blood cell or the in vivo glycation rates. Glucose, estimated average 05/04/2023 09:25:44 105 <126 (mg/dL) Final Performing Location [facility] [place] - [address] [facility] [address]
--- OUTSIDE RECORDS SUMMARY | 2023-06-29 18:02 | External Medical Summary ---
Author Name Unknown Address Unknown Organization [id number]:[facility] [address] [place] [address] Laboratory Report Ordering Provider Test Date Status DINH KAUFFMAN 05/04/2023 09:25:44 Final Observation Date Value Abnormality Reference (Units ) Status SYNC LEUKOCYTES IN BLOOD BY AUTOMATED COUNT 05/04/2023 09:25:44 8.30 4.00-10.80 (K/uL) Final Segs 05/04/2023 09:25:44 56.0 40.0-75.0 (%) Final Lymphs % 05/04/2023 09:25:44 29.3 18.0-42.0 (%) Final Monos 05/04/2023 09:25:44 11.4 Above high normal 1.0-11.0 (%) Final Eosinophils 05/04/2023 09:25:44 2.9 0.0-6.0 (%) Final Basos 05/04/2023 09:25:44 0.4 0.0-2.0 (%) Final Absolute Segs 05/04/2023 09:25:44 4.65 1.80-7.70 (K/uL) Final Lymphs, absolute 05/04/2023 09:25:44 2.43 1.00-4.80 (K/ul) Final Monos, Abs 05/04/2023 09:25:44 0.95 0.00-1.10 (K/uL) Final Eos, Abs 05/04/2023 09:25:44 0.24 0.00-0.70 (K/uL) Final Basos, Abs 05/04/2023 09:25:44 0.03 0.00-0.20 (K/uL) Final Performing Location [facility] [address] [place] [id number]
--- OUTSIDE RECORDS SUMMARY | 2023-06-29 18:02 | External Medical Summary ---
Author Name Unknown Address Unknown Organization [id number]:[facility] - [address] [place] [id number] Laboratory Report Ordering Provider Test Date Status DINH KAUFFMAN 05/04/2023 09:25:44 Final Observation Date Value Abnormality Reference (Units ) Status Insulin level 05/04/2023 09:25:44 38 Above high mae l 3-25 (uU/mL) Final The above reference interval is based on fasting status. Performing Location [facility] - [address] [place] [id number]
--- OUTSIDE RECORDS SUMMARY | 2023-06-29 18:02 | External Medical Summary | Summary of Care ---
Author Name Unknown Organization [facility] Address [address] [place] [address] Phone [phone] Care Team Providers Care Flexible Babysitter Name Role Phone Phil Pardo MD Primary Care Provider +1- [phone] Encounter Details Date Type Department Care Team Description 04/29/2023 Immunization Ancillary [facility] [address] [place] [address] [facility] [address] [place] [address] Arrived Allergies No known active allergiesdocumented as of this encounter (statuses as of 04/29/2023) Medications Medication Sig Dispensed Refills Start Date [...] THE MORNING 90 Tablet 1 03/05/2023 Active documented as of this encounter (statuses as of 04/29/2023) Active Problems Problem Noted Date HTN, goal below 140/90 06/08/2022 Iron deficiency 06/08/2022 Gastroesophageal reflux disease 06/08/20 22 Body mass index (BMI) of 50.0 to 59.9 in adult 11/17/2020 Overview: Per Obesity protocol ADVANCE DIRECTIVE INFORMATION 08/09/2005 Overview: Not applicable (under age of 18) FLAT FOOT, FLEXIBLE 04/04/2005 Other psoriasis 03/06/2002 documented as of this encounter (statuses as of 04/29/2023) Resolved Problems Problem Noted Date Resolved Date Acute swimmer's ear of right side 01/12/2018 08/04/2021 INFEC OTITIS EXTERNA, RIGHT 01/18/201007/11 Otalgia 01/18/2010 08/04/2021 TENOSYNOVITIS FOOT, RIGHT MEDIAL 04/04/2005 08/04/2021 OVERWEIGHT 04/04/2005 2016 OBESITY, UNSPECIFIED 05/05/2003 08/04/2021 documented as of this encounter (statuses as of 04/29/2023) Immunizations Name Administration Dates Next Due COVID-19 mRNA, LNP-s, No Pre serve, 2-Dose Series (SwingShot) 07/02/2021,10/17/2020,09/26/2020 HPV Vaccine, 4-Valent 11/06/2007,07/04/2007,04/09 Meningococcal Conjugate [...] Packs/Day Years Used Date Smoking Tobacco: Never Smokeless Tobacco: Never Comments:non smoking househo ld Alcohol Use Standard Drinks/Week Comments No 0 (1 standard drink = 0.6 oz pur e alcohol) Food Insecurity Answer Date Recorded Within the past 12 months, y ou worried that your food would run out before you got money to buy more. Never true 06/08/2022 Within the past 12 months, t he food you bought just didn't last and you didn't have money to get more. Never true 06/08/2022 Sex Assigned at Date Recorded Female 05/22/2019 6:01 PM EST Job Start Date Occupation Industry Not on file Not on file Not on file documented as of this encounter Plan of Treatment Upcoming Encounters Date Type Specialty Care Team Description 05/01/2023 [facility] Visit [facility] [address] [facility] [address] 06/02/2023 Office Visit [facility] [address] 08/04/2023 Office Visit Hematology Oncology River Solomon MD [address] [facility] [place] [address] 12/11/2023 Office Visit Family Medicine Phil Pardo MD [address] [facility] [place] [address] Health Maintenance Due Date Last Done Comments HIV Screening 2005 Hepatitis C Screening 02/09/2008 Pap Smear 04/21/2019 04/21/2016, 09/08, 10/03/2013 (Done elsewhere) Cervical Cancer Screening 02/09/2020 HPV/Co-Test 02/09/2020 COVID-19 Vaccine ( season) 2023 07/02/2021, 10/17/2020, 09/26/2020 Influenza Vaccine (FLU shot) (#1) 2023 04/29/2023, 04/29/2023, 04/16/2022, Additional history exists Depression Screening 06/08/2023 06/08/2022 GFR 12/24/2023 12/23/2022, 01/07, 08/04/2021, Additional history exists Albumin/Creatinine Ratio 12/23/2025 12/23/2022 DTaP,Tdap,and Td Vaccines (7 - Td or Tdap) 02/07/2026 2016, 03/23/2006, 09/06/1993, Additional history exists Hepatitis B Completed 11/13/1992, 04/11, 04/08/1992 MENINGOCOCCAL (MENACTRA/MENVEO) Completed 04/27/2007 GARDASIL-HPV IMMUNIZATION SERIES Completed 11/06/2007, 07/04/2007, 04/27/2007 Pneumococcal Vaccine: Pediatrics (0 to 5 Years) and At-Risk Patients (6 to 64 Years) Aged Out No longer eligible based on patient's age to complete this topic documented as of this encounter Medical Devices Not on filedocumented as of this encounter Care Teams Flexible Babysitter Relationship Specialty Start Date End Date Phil Pardo MD [address], [place] [phone] PCP - General Family Medicine 08/04/21 documented as of this encounter
--- OUTSIDE RECORDS SUMMARY | 2023-06-29 18:02 | External Medical Summary | Summary of Care ---
Author Name Unknown Organization [facility] Address [address] [place] [address] Phone [phone] Care Team Providers Care Circus Trainer Name Role Phone Phil Pardo MD Primary Care Provider +1- [phone] Encounter Details Date Type Department Care Team Description 04/29/2023 Immunization Ancillary [facility] [address] [place] [address] [facility] [address] [place] [address] Arrived Allergies No known active allergiesdocumented as [...] mRNA, LNP-s, No Pre serve, 2-Dose Series (CAXA) 07/02/2021,10/17/2020,09/26/2020 HPV Vaccine, 4-Valent 11/06/2007,07/04/2007,04/09 Meningococcal Conjugate Vacc ine (Menactra/Menveo) 04/27/2007 PPD 05/20/2011,05/15/2007,05/01/2007 SEASONAL INFLUENZA, PF, 6 M & Above, IM , (FLULAVAL or FLUZONE) 04/29/2023,04/16/2022,03/27/2021,03/12,04/01/2019,05/18/2018 Seasonal Influenza, Quadriva lent, No Preserve, IM [...] at Date Recorded Female 05/22/2019 6:[address] Job Start Date Occupation Industry Not on file Not on file Not on file documented as of this encounter Plan of Treatment Upcoming Encounters Date Type Specialty Care Team Description 05/01/2023 Office Visit Family Medicine Lee Horan MD [address] [place] [place] [address] 06/02/2023 Office Visit Gynecology Obstetrics Prabha Angulo MD [address] [place] [address] 08/04/2023 Office Visit Hematology Oncology River Solomon MD [address] [place] [address] 12/11/2023 Office Visit Family Medicine Phil Pardo MD [address] [facility] [place] [phone] Health Maintenance Due Date Last Done Comments HIV Screening 2005 Hepatitis C Screening 02/09/2008 Pap Smear 04/21/2019 04/21/2016, 09/08, 10/03/2013 (Done elsewhere) Cervical Cancer Screening 02/09/2020 HPV/Co-Test 02/09/2020 COVID-19 Vaccine ( season) 2023 07/02/2021, 10/17/2020, 09/26/2020 Influenza Vaccine (FLU shot) (#1) 2023 04/29/2023, 04/16/2022, 03/27/2021, Additional history exists Depression Screening 06/08/2023 06/08/2022 [...] filedocumented as of this encounter Care Teams Circus Trainer Relationship Specialty Start Date End Date Phil Pardo MD [address] [place], [place] [phone] PCP - General Family Medicine 08/04/21 documented as of this encounter
--- OUTSIDE RECORDS SUMMARY | 2023-06-29 18:02 | External Medical Summary | Summary of Care ---
Author Name Unknown Organization [facility] Address [address] [place] [address] Phone [phone] Care Team Providers Care Factory Helper Name Role Phone Phil Pardo MD Primary Care Provider +1- [phone] Reason for Visit * Reason Comments Emergency Department Follow-Up Encounter Details Date Type Department Care Team (Late st Contact Info) Description 05/01/2023 2:00 PM EDT Office Visit [facility] [address] [place] [address] Lee Horan MD [address] [place] [address] Rt flank pain*; Body mass index (BMI) of 50.0 to 59.9 in adult (HCC); Mid back pain on right side; Polycystic ovaries; Iron deficiency; HTN, goal below 140/90 Allergies No known active allergiesdocumented as of this encounter (statuses as of 05/01/2023) Medications Medication Sig Dispensed Refills Start Date [...] as of this encounter (statuses as of 05/01/2023) Active Problems Problem Noted Date Diagnosed Date Polycystic ovaries 05/01/2023 HTN, goal below 140/90 06/08/2022 Iron deficiency 06/08/2022 Gastroesophageal reflux disease 06/08/2022 Body mass index (BMI) of 50.0 to 59.9 in adult 0 11/17/2020 Overview: Per Obesity protocol ADVANCE DIRECTIVE INFORMATION 08/09/2005 Overview: Not applicable (under age of 18) FLAT FOOT, FLEXIBLE 04/04/2005 Other psoriasis 03/06/2002 documented as of this encounter (statuses as of 05/01/2023) Resolved Problems Problem Noted Date Diagnosed Date Resolved Date Acute swimmer's ear of right side 01/12/2018 08/04/2021 INFEC OTITIS EXTERNA, RIGHT 01/18/2010 08/04/2021 Otalgia 01/18/2010 08/04/2021 TENOSYNOVITIS FOOT, RIGHT MEDIAL 04/04/2005 08/04/2021 OVERWEIGHT 04/04/2005 2016 OBESITY, UNSPECIFIED 05/05/2003 022 documented as of this encounter (statuses as of 05/01/2023) Immunizations Name Administration Dates Next Due COVID-19 mRNA, LNP-s, No Pre serve, 2-Dose Series (Jack Erwin) 07/02/2021,10/17/2020,09/26/2020 HPV Vaccine, 4-Valent 11/06/2007,07/04/2007,04/09 Meningococcal Conjugate [...] Passive Smoke Exposure: Never Smokeless Tobacco: Never Tobacco Cessation:Counseling Given: Not Answered Comments:non smoking household Alcohol Use Standard Drinks/Week Comments No 0 [...] Sign Reading Time Taken Comments Blood Pressure 148/78 05/01/2023 1:57 PM EDT Pulse 77 05/01/2023 1:57 PM EDT Temperature 36.9 C (98.4 F) 05/01/2023 1:57 PM ED T Respiratory Rate 22 05/01/2023 1:57 PM EDT Oxygen Saturation 98% 05/01/2023 1:57 PM EDT Inhaled Oxygen Concentration - - Weight 137.6 kg (303 lb 6.4 oz) 05/01/2023 1:57 PM EDT Height 160 cm (5' 3") 05/01/2023 1:57 PM EDT Body Mass Index 53.74 05/01/2023 1:57 PM EDT documented in this encounter Progress Notes * Lee Horan MD - 05/01/2023 2:15 PM EDT Images from the original note were not included. Subjective Khloe Ladd is a 33 year old female. Chief Complaint Patient presents with Emergency Department Follow-Up HPI: Here for ER f/u Had rt sided shooting pain, Had CT which showed lt sided kidney stone, 3mm, non obstructing and B/L large ovarian cysts/follicles Still regular period but morbidly obese, trying to lose weight with some diet changes Lost more than 20 pounds since last year For ovarin cysts , will f/u with rope maker - still having regular period, but painful Also will check out insulin level BMI 53 Encouraged diet exercise Currently mid back, flank pain has resolved Denies any urinary sx CORNELIO - taking iron pill, fu with hematology HTN, taking meds PMH: Patient Active Problem List Diagnosis Code Other psoriasis L40.8 FLAT FOOT, FLEXIBLE M21.40 ADVANCE DIRECTIVE INFORMATION Body mass index (BMI) of 50.0 to 59.9 in adult (HCC) Z68.43 HTN, goal below 140/90 I10 Iron deficiency E61.1 Gastroesophageal reflux disease K21.9 Polycystic ovaries E28.2 Current Outpatient Medications Medication Sig Dispense Refill omeprazole (PRILOSEC) 20 MG CPDR Take 1 Capsule by mouth in the morning. Ferrous Sulfate (IRON) 325 (65 Fe) MG TABS Take 1 Tablet by mouth every other day. Triamcinolone Acetonide 0.1 % External Cream (Aristocort) Apply to affected skin behind the ears twice per day as needed 45 g 1 amLODIPine Besylate 5 MG Oral Tablet (Norvasc) TAKE 1 TABLET BY MOUTH IN THE MORNING 90 Tablet 2 Metoprolol Succinate ER 100 MG Oral Tablet Extended Release 24 Hour (toPROL XL) TAKE 1 TABLET BY MOUTH IN THE MORNING 90 Tablet 1 hydroCHLOROthiazide 25 MG Oral Tablet (Hydrodiuril) TAKE 1 TABLET BY MOUTH ONCE DAILY IN THE MORNING 90 Tablet 1 No current facility-administered medications for this visit. Past Medical History: Diagnosis Date Obesity, BMI not known Past Surgical History: Procedure Laterality Date LAPAROSCOPY; CHOLECYSTECTOMY 03/02/10 Laparoscopic cholecystectomy with intraoperative cholangiogram at [facility] - Dr. 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 Tobacco Use Smoking status: Never Passive exposure: Never Smokeless tobacco: Never Tobacco comments: non smoking household Substance and Sexual Activity Alcohol use: No Drug use: No Sexual activity: Never Other Topics Concern Not on file Social History Narrative Not on file Social Determinants of Health Financial Resource Strain: Not on file Food Insecurity: No Food Insecurity (06/08/2022) Hunger Vital Sign Worried About Running Out of Food in the Last Year: Never true Ran Out of Food in the Last Year: Never true Transportation Needs: Not on file Physical Activity: Not on file Stress: Not on file Social Connections: Not on file Intimate Partner Violence: Not on file Housing Stability: Not on file Review of Systems Constitutional: Positive for fatigue. Negative for activity change, appetite change, chills, diaphoresis, fever and unexpected weight change. Respiratory: Negative. Cardiovascular: Negative. Gastrointestinal: Negative for abdominal distention, abdominal pain, blood in stool, constipation, diarrhea, nausea and vomiting. Genitourinary: Positive for flank pain. Negative for dysuria, hematuria, pelvic pain and urgency. Musculoskeletal: Positive for back pain (mild rt sided). Neurological: Negative for dizziness. Psychiatric/Behavioral: Negative for agitation and behavioral problems. Objective BP 148/78 | Pulse 77 | Temp 36.9 C (98.4 F) (Infrared ) | Resp 22 | Ht 1.6 m (5' 3") | Wt (!) 137.6 kg (303 lb 6.4 oz) | SpO2 98% | BMI 53.74 kg/m | BSA 2.47 m Physical Exam Constitutional: General: She is not in acute distress. Appearance: Normal appearance. She is obese. She is not ill-appearing, toxic- appearing or diaphoretic. HENT: Nose: Nose normal. Eyes: Extraocular Movements: Extraocular movements intact. Conjunctiva/sclera: Conjunctivae normal. Pupils: Pupils are equal, round, and reactive to light. Abdominal: Tenderness: There is no right CVA tenderness or left CVA tenderness. Musculoskeletal: General: Tenderness present. Back: Skin: Findings: No erythema or rash. Neurological: General: No focal deficit present. Mental Status: She is alert and oriented to person, place, and time. Psychiatric: Behavior: Behavior normal. ASSESSMENT/PLAN: Rt flank pain (Primary) Body mass index (BMI) of 50.0 to 59.9 in adult (HCC) - INSULIN; Future; Expected date: 05/01/2023 - HEMOGLOBIN A1C; Future; Expected date: 05/01/2023 - COMPREHENSIVE METABOLIC PANEL; Future; Expected date: 05/01/2023 - CBC WITH WBC DIFFERENTIAL; Future; Expected date: 05/01/2023 - LIPID PANEL WITH DIRECT LDL IF TG IS HIGH; Future; Expected date: 05/01/2023 Mid back pain on right side - COMPREHENSIVE METABOLIC PANEL; Future; Expected date: 05/01/2023 - CBC WITH WBC DIFFERENTIAL; Future; Expected date: 05/01/2023 Polycystic ovaries - INSULIN; Future; Expected date: 05/01/2023 - HEMOGLOBIN A1C; Future; Expected date: 05/01/2023 - COMPREHENSIVE METABOLIC PANEL; Future; Expected date: 05/01/2023 - CBC WITH WBC DIFFERENTIAL; Future; Expected date: 05/01/2023 - LIPID PANEL WITH DIRECT LDL IF TG IS HIGH; Future; Expected date: 05/01/2023 Iron deficiency HTN, goal below 140/90 --> F/u tests F/u with PREPARATION OPERATOR If flank. Mid back pain recurs, will consider xray, PT Lee Horan MD documented in this encounter Nursing Notes * Cara Hair LPN - 05/01/2023 1:56 PM EDT Chief Complaint Patient presents with Hospital Follow-Up documented in this encounter Plan of Treatment Upcoming Encounters Date Type Department Care Team (Late st Contact Info) Description 06/02/2023 2:00 PM EST Office Visit Gynecology/Obstetrics [facility] [address] [place] [address] Prabha Angulo MD [address] [place] [address] 08/04/2023 2:15 PM EST Office Visit [facility]ology[facility]On[facility] [address] [facility] [place] [address] River Solomon MD [address] [facility] [place] [address] 12/11/2023 11:40 AM EDT Office Visit [facility] [address] [place] [phone] Phil Pardo MD [address] [place], [place] [phone] Scheduled Orders Name Type Priority Associated Diagnoses Orde r Schedule INSULIN Lab Routine Body mass index (BMI) of 50.0 to 59.9 in adult ([facility]) Polycystic ovaries Expected: 05/01/2023 (Approximate), Expires: 04/30/2024 HEMOGLOBIN A1C Lab Routine Body mass index (BMI) of 50.0 to 59.9 in adult ([facility]) Polycystic ovaries Expected: 05/01/2023 (Approximate), Expires: 04/30/2024 COMPREHENSIVE METABOLIC PANEL Lab Routine Body mass index (BMI) of 50.0 to 59.9 in adult ([facility]) Mid back pain on right side Polycystic ovaries Expected: 05/01/2023 (Approximate), Expires: 04/30/2024 CBC WITH WBC DIFFERENTIAL Lab Routine Body mass index (BMI) of 50.0 to 59.9 in adult ([facility]) Mid back pain on right side Polycystic ovaries Expected: 05/01/2023 (Approximate), Expires: 05/01/2024 LIPID PANEL WITH DIRECT LDL IF TG IS HIGH Lab Routine Body mass index (BMI) of 50.0 to 59.9 in adult (HCC) Polycystic ovaries Expected: 05/01/2023, Expires: 05/01/2024 Health Maintenance Due Date Last Done Comments HIV Screening 2005 Hepatitis C Screening 02/09/2008 Pap Smear 04/21/2019 04/21/2016, 09/08, 10/03/2013 (Done elsewhere) Cervical Cancer Screening 02/09/2020 HPV/Co-Test 02/09/2020 COVID-19 Vaccine ( season) 2023 07/02/2021, 10/17/2020, 09/26/2020 Depression Screening 06/08/2023 06/08/2022 GFR 12/24/2023 12/23/2022, [...] as of this encounter Visit Diagnoses Diagnosis Rt flank pain- Primary Abdominal pain, unspecified site Body mass index (BMI) of 50.0 to 59.9 in adult (HCC) Mid back pain on right side Polycystic ovaries Iron deficiency Iron deficiency anemia, unspecified HTN, goal below 140/90 Unspecified essential hypertension documented in this encounter Care Teams Factory Helper Relationship Specialty Start Date End Date Phil Pardo MD [address] [place] [address] PCP - General Family Medicine 08/04/21 documented as of this encounter
--- OUTSIDE RECORDS SUMMARY | 2023-06-29 18:02 | External Medical Summary | Summary of Care ---
Author Name Unknown Organization [facility] Address [address] [place] [address] Phone [phone] Care Team Providers Care Senior Cost Accountant Name Role Phone Aleida Mckeon MD Primary Care Provider +1- [phone] Reason for Visit * Reason Comments eRx-Medication Refill Encounter Details Date Type Department Care Team Description 02/19/2023 Refill [facility] [address] [place] [address] Aleida Mckeon MD [address] [place] [address] Allergies No known active allergiesdocumented as of this encounter (statuses as of 02/20/2023) Medications Medication Sig Dispensed Refills Start Date End Date Status omeprazole (PRILOSEC) 20 MG CPDR Take 1 Capsule by mouth in the morning. 0 Active Ferrous Sulfate (IRON) 325 (65 Fe) MG TABS Take 1 Tablet by mouth every other day. 0 Active hydroCHLOROthiazi de 25 MG Oral Tablet (Hydrodiuril) TAKE 1 TABLET BY MOUTH IN THE MORNING 90 Tablet 1 07/29/2022 Active Metoprolol Succinate ER 100 MG Oral Tablet Extended Release 24 Hour (toPROL XL) TAKE 1 TABLET BY MOUTH IN THE MORNING 90 Tablet 0 11/04/2022 Active Triamcinolone Acetonide 0.1 % External Cream (Aristocort) Apply to affected skin behind the ears twice per day as needed 45 g 1 12/07/2022 Active amLODIPine Besylate 5 MG Oral Tablet (Norvasc) TAKE 1 TABLET BY MOUTH IN THE MORNING 90 Tablet 2 02/20/2023 Active amLODIPine Besylate 5 MG Oral Tablet (Norvasc) TAKE 1 TABLET BY MOUTH IN THE MORNING 90 Tablet 1 09/02/2022 02/20/2023 Discontinued documented as of this encounter (statuses as of 02/20/2023) Active Problems Problem Noted Date HTN, goal below 140/90 06/08/2022 Iron deficiency 06/08/2022 Gastroesophageal reflux disease 06/08/20 22 Body mass index (BMI) of 50.0 to 59.9 in adult 11/17/2020 Overview: Per Obesity protocol ADVANCE DIRECTIVE INFORMATION 08/09/2005 Overview: Not applicable (under age of 18) FLAT FOOT, FLEXIBLE 04/04/2005 Other psoriasis 03/06/2002 documented as of this encounter (statuses as of 02/20/2023) Resolved Problems Problem Noted Date Resolved Date Acute swimmer's ear of right side 01/12/2018 08/04/2021 INFEC OTITIS EXTERNA, RIGHT 01/18/201007/11 Otalgia 01/18/2010 08/04/2021 TENOSYNOVITIS FOOT, RIGHT MEDIAL 04/04/2005 08/04/2021 OVERWEIGHT 04/04/2005 2016 OBESITY, UNSPECIFIED 05/05/2003 08/04/2021 documented as of this encounter (statuses as of 02/20/2023) Immunizations Name Administration Dates Next Due COVID-19 mRNA, LNP-s, No Pre serve, 2-Dose Series (Templafy) 07/02/2021,10/17/2020,09/26/2020 HPV Vaccine, 4-Valent 11/06/2007,07/04/2007,04/09 Meningococcal Conjugate Vacc ine (Menactra/Menveo) 04/27/2007 PPD 05/20/2011,05/15/2007,05/01/2007 Seasonal Influenza, Quadriva lent, No Preserve, 6 Mons & Above, IM 04/16/2022,03/27/2021,04/08/2020,03/11,05/18/2018 Seasonal Influenza, Quadriva lent, No Preserve, IM [...] on file documented as of this encounter Miscellaneous Notes * Telephone Encounter - dEin Wiggins RPh - 02/20/2023 10:37 AM EDT Signed Prescriptions: Disp Refills amLODIPine Besylate 5 MG Oral Tablet (Norv*90 Tab*2 Sig: TAKE 1 TABLET BY MOUTH IN THE MORNINGAuthorizing Provider: ALEIDA MCKEON User: EDIN WIGGINS documented in this encounter Plan of Treatment Upcoming Encounters Date Type Specialty Care Team Description 08/04/2023 Office Visit Hematology Oncology River Solomon MD [address] [place], [place] [address] [address] 12/11/2023 Office Visit Family Medicine Aleida Mckeon MD [address] [place] [id number] Health Maintenance Due Date Last Done Comments HIV Screening 2005 Hepatitis C Screening 02/09/2008 Pap Smear 04/21/2019 04/21/2016, 09/08, 10/03/2013 (Done elsewhere) Cervical Cancer Screening 02/09/2020 HPV/Co-Test 02/09/2020 COVID-19 Vaccine (4 - Pfizer series) 08/27/2021 07/02/2021, 10/17/2020, 09/26/2020 Influenza Vaccine (FLU shot) (#1) 2023 04/16/2022, 03/27/2021, 04/08/2020, Additional history exists Depression Screening, Annual for Pts 12 and Over 06/08/2023 06/08/2022 GFR 12/24/2023 12/23/2022, 01/07, 08/04/2021, [...] filedocumented as of this encounter Care Teams Senior Cost Accountant Relationship Specialty Start Date End Date Aleida Mckeon MD [address] [place] [address] PCP - General Family Medicine 08/04/21 documented as of this encounter
--- OUTSIDE RECORDS SUMMARY | 2023-06-29 18:02 | External Medical Summary | Summary of Care ---
Author Name Unknown Organization [facility] Address [address] [place] [address] Phone [phone] Care Team Providers Care Horse Rancher Name Role Phone Aleida Mckeon MD Primary Care Provider [phone]- [phone] Reason for Visit * Reason Comments eRx-Medication Refill Encounter Details Date Type Department Care Team Description 03/05/2023 Refill [facility] [address] [place] [address] Aleida Mckeon MD [address] [place] [address] Allergies No known active allergiesdocumented as of this encounter (statuses as of 03/05/2023) Medications Medication Sig Dispensed Refills Start Date [...] THE MORNING 90 Tablet 1 03/05/2023 Active hydroCHLOROthiazi de 25 MG Oral Tablet (Hydrodiuril) TAKE 1 TABLET BY MOUTH ONCE DAILY IN THE MORNING 90 Tablet 1 03/05/2023 Active hydroCHLOROthiazi de 25 MG Oral Tablet (Hydrodiuril) TAKE 1 TABLET BY MOUTH IN THE MORNING 90 Tablet 1 07/29/2022 03/05/2023 Discontinued Metoprolol Succinate ER 100 MG Oral Tablet Extended Release 24 Hour (toPROL XL) TAKE 1 TABLET BY MOUTH IN THE MORNING 90 Tablet 0 11/04/2022 03/05/2023 Discontinued documented as of this encounter (statuses as of 03/05/2023) Active Problems Problem Noted Date HTN, goal below 140/90 06/08/2022 Iron deficiency 06/08/2022 Gastroesophageal reflux disease 06/08/20 22 Body mass index (BMI) of 50.0 to 59.9 in adult 11/17/2020 Overview: Per Obesity protocol ADVANCE DIRECTIVE INFORMATION 08/09/2005 Overview: Not applicable (under age of 18) FLAT FOOT, FLEXIBLE 04/04/2005 Other psoriasis 03/06/2002 documented as of this encounter (statuses as of 03/05/2023) Resolved Problems Problem Noted Date Resolved Date Acute swimmer's ear of right side 01/12/2018 08/04/2021 INFEC OTITIS EXTERNA, RIGHT 01/18/201007/11 Otalgia 01/18/2010 08/04/2021 TENOSYNOVITIS FOOT, RIGHT MEDIAL 04/04/2005 08/04/2021 OVERWEIGHT 04/04/2005 2016 OBESITY, UNSPECIFIED 05/05/2003 08/04/2021 documented as of this encounter (statuses as of 03/05/2023) Immunizations Name Administration Dates Next Due COVID-19 mRNA, LNP-s, No Pre serve, 2-Dose Series ([employer]) 07/02/2021,10/17/2020,09/26/2020 HPV Vaccine, 4-Valent 11/06/2007,07/04/2007,04/09 Meningococcal Conjugate Vacc ine (Menactra/Menveo) 04/27/2007 PPD 05/20/2011,05/15/2007,05/01/2007 Seasonal Influenza, PF, 6 mo ns & Above, IM , (Flulaval) 04/16/2022,03/27/2021,04/08/2020,03/11,05/18/2018 Seasonal Influenza, Quadriva lent, No Preserve, [...] encounter Miscellaneous Notes * Telephone Encounter - Ryder Oropeza, [facility] - 03/05/2023 8:46 PM EDTSigned Prescriptions: Disp Refills Metoprolol Succinate ER 100 MG Oral Tablet*90 Tab*1 Sig: TAKE 1 TABLET BY MOUTH IN THE MORNINGAuthorizing Provider: ALEIDA MCKEON User: RYDER OROPEZA hydroCHLOROthiazide 25 MG Oral Tablet (Hyd*90 Tab*1 Sig: TAKE 1 TABLET BY MOUTH ONCE DAILY IN THE MOR NINGAuthorizing Provider: ALEIDA MCKEON User: RYDER OROPEZA documented in this encounter Plan of Treatment Upcoming Encounters Date Type Specialty Care Team Description 08/04/2023 Office Visit Hematology Oncology River Solomon MD [address] [place] [address] 12/11/2023 Office Visit Family Medicine Aleida Mckeon MD [address] [place] [address] Health Maintenance Due Date Last Done Comments [...] filedocumented as of this encounter Care Teams Horse Rancher Relationship Specialty Start Date End Date Aleida Mckeon MD [address], [place] [phone] PCP - General Family Medicine 08/04/21 documented as of this encounter
--- OUTSIDE RECORDS SUMMARY | 2023-06-29 18:02 | External Medical Summary ---
Author Name Unknown Address Unknown Organization [id number]:[facility] [place] [address] [facility] [place] [address] Laboratory Report Ordering Provider Test Date Status DINH KAUFFMAN 05/04/2023 09:25:44 Final Observation Date Value Abnormality Reference (Units ) Status Triglyceride 05/04/2023 09:25:44 125 <=174 ( mg/dL) Final Triglyceride Reference Range s (mg/dL):
<150 Acceptable
150-174 Borderline high
175-499 High
>=500 Very high Cholesterol 05/04/2023 09:25:44 183 <200 (mg /dL) Final Total Cholesterol Reference Ranges (mg/dL):
<200 Desirable
200-239 Borderline high
>=240 High HDL 05/04/2023 09:25:44 47 Below low normal >49 (mg/dL) Final HDL Cholesterol Reference Ra nges (mg/dL):
>=60 High (Desirable)
<50 Low (Undesirable) For Females
<40 Low (Undesirable) For Males NON-HDL CHOLESTEROL 05/04/2023 09:25:44 136 <=159 (mg/dL) Final Non-HDL Cholesterol Referenc e Range (mg/dL):
<100 Target level for high risk ASCVD patient
<130 Optimal for general population
130-159 Near optimal for general population
160-189 Borderline High
190-219 High
>=220 Very High LDL, (calculated) 05/04/2023 09:25:44 111 <= 129 (mg/dL) Final LDL Cholesterol Reference Ra nges (mg/dL):
<70 Target level for high risk ASCVD patient
<100 Optimal for general population
100-129 Near optimal for general population
130-159 Borderline high
160-189 High
>=190 Very high Performing Location [facility] [place] [address] [facility] [address]
--- OUTSIDE RECORDS SUMMARY | 2023-06-29 18:02 | External Medical Summary ---
Author Name Unknown Address Unknown Organization [id number][facility] [address] [facility] [address] [place] [id number] Laboratory Report Ordering Provider Test Date Status DINH KAUFFMAN 05/04/2023 09:25:44 Final Observation Date Value Abnormality Reference (Units ) Status WBC, Total 05/04/2023 09:25:44 8.30 4.00-10.8 0 (K/uL) Final RBC 05/04/2023 09:25:44 4.23 3.85-5.15 (M/uL) Final Hemoglobin 05/04/2023 09:25:44 13.3 12.0-15.3 (g/dL) Final HCT 05/04/2023 09:25:44 39.4 36.0-45.2 (%) Final MCV 05/04/2023 09:25:44 93.1 81.5-97.5 (fL) Final MCH 05/04/2023 09:25:44 31.4 27.0-34.0 (pg) Final MCHC 05/04/2023 09:25:44 33.8 32.0-36.0 (g/dL) Final RDW 05/04/2023 09:25:44 13.0 11.5-15.5 (%) Final Platelets 05/04/2023 09:25:44 452 Above high normal 14 0-400 (K/uL) Final MPV 05/04/2023 09:25:44 10.6 6.6-11.1 ( fL) Final Performing Location [facility] [address] [place] [id number]
--- OUTSIDE RECORDS SUMMARY | 2023-06-29 18:02 | External Medical Summary ---
Author Name Unknown Address Unknown Organization [id number]:[facility] [address] [place] [address] Laboratory Report Ordering Provider Test Date Status DINH KAUFFMAN 05/04/2023 09:25:44 Final Observation Date Value Abnormality Reference (Units ) Status BUN 05/04/2023 09:25:44 12 6-20 (mg/dL) Final Creatinine 05/04/2023 09:25:44 0.7 0.5-1.0 (mg/dL) Final Glomerular filtration rate/1.73 sq M.predicted [Volume Rate/Area] in Serum, Plasma or Blood by Creatinine-based formula (CKD-EPI) 05/04/2023 09:25:44 >90 >=60 (mL/min) Final eGFR is calculated based on the CKD-EPI 2020 equation SODIUM 05/04/2023 09:25:44 140 135-146 (m mol/L) Final Potassium 05/04/2023 09:25:44 3.8 3.5-5.1 (m mol/L) Final Cl 05/04/2023 09:25:44 100 98-107 (mm ol/L) Final CO2 05/04/2023 09:25:44 26 22-32 (mmo l/L) Final Anion gap 05/04/2023 09:25:44 14 7-15 (mmol /L) Final Glucose 05/04/2023 09:25:44 94 70-120 (mg /dL) Final Albumin 05/04/2023 09:25:44 3.6 Below low normal 3.8 -5.0 (g/dL) Final AST (Aspartate aminotransferase) 05/04/2023 09:25:44 15 10-35 (U/L) Fin al Alk Phos 05/04/2023 09:25:44 71 35-130 (U/ L) Final Bilirubin, Total 05/04/2023 09:25:44 0.7 <=1 .2 (mg/dL) Final Calcium 05/04/2023 09:25:44 9.1 8.4-10.2 ( mg/dL) Final Protein 05/04/2023 09:25:44 6.4 6.0-8.3 (g /dL) Final ALT (Alanine aminotransferase) 05/04/2023 09:25:44 22 10-35 (U/L) Nicholas patiño Performing Location [facility] [address] [facility] [address]
--- OUTSIDE RECORDS SUMMARY | 2023-06-29 18:02 | External Medical Summary | Summary of Care ---
Author Name Unknown Organization [facility] Address [address] [place] [address] Phone [phone] Care Team Providers Care Coroner'S Juror Name Role Phone Phil Pardo MD Primary Care Provider [phone]- [phone] Reason for Visit * Reason Comments Outpatient Testing Encounter Details Date Type Department Care Team (Late st Contact Info) Description 05/04/2023 9:20 AM EDT Laboratory Laboratory, [facility] [address] [place] [phone] [facility] [address] [place] [address] Body mass index (BMI) of 50.0 to 59.9 in adult (HCC); Polycystic ovaries; Mid back pain on right side Allergies No known active allergiesdocumented as of this encounter (statuses as of 05/04/2023) Medications Medication Sig Dispensed Refills Start Date [...] as of this encounter (statuses as of 05/04/2023) Active Problems Problem Noted Date Diagnosed Date [...] as of this encounter (statuses as of 05/04/2023) Resolved Problems Problem Noted Date Diagnosed Date Resolved Date Acute swimmer's ear of right side 01/12/2018 08/04/2021 INFEC OTITIS EXTERNA, RIGHT 01/18/2010 08/04/2021 Otalgia 01/18/2010 08/04/2021 TENOSYNOVITIS FOOT, RIGHT MEDIAL 04/04/2005 08/04/2021 OVERWEIGHT 04/04/2005 2016 OBESITY, UNSPECIFIED 05/05/2003 022 documented as of this encounter (statuses as of 05/04/2023) Immunizations Name Administration Dates Next Due COVID-19 [...] 06/02/2023 2:00 PM EST [facility] [address] [address] Prabha Angulo MD [address] [address] 08/04/2023 2:15 PM EST Office Visit Hematology/Oncology [facility] [place] [address] [facility] [place] [address] River Solomon MD [address] [place] [address] 12/11/2023 11:40 AM EDT Office Visit [facility] [address] [place] [phone] Phil Pardo MD [address], [place] [phone] Pending Results Name Type Priority Associated Diagnoses Date /Time INSULIN Lab Routine Body mass index (BMI) of 50.0 to 59.9 in adult (HCC) Polycystic ovaries 05/04/2023 9:25 AM EDT HEMOGLOBIN A1C Lab Routine Body mass index (BMI) of 50.0 to 59.9 in adult (HCC) Polycystic ovaries 05/04/2023 9:25 AM EDT COMPREHENSIVE METABOLIC PANEL Lab Routine Body mass index (BMI) of 50.0 to 59.9 in adult (HCC) Mid back pain on right side Polycystic ovaries 05/04/2023 9:25 AM EDT CBC WITH WBC DIFFERENTIAL Lab Routine Body mass index (BMI) of 50.0 to 59.9 in adult (HCC) Mid back pain on right side Polycystic ovaries 05/04/2023 9:25 AM EDT LIPID PANEL WITH DIRECT LDL IF TG IS HIGH Lab Routine Body mass index (BMI) of 50.0 to 59.9 in adult (HCC) Polycystic ovaries 05/04/2023 9:25 AM EDT CBC Lab Routine Body mass index (BMI) of 50.0 to 59.9 in adult (HCC) Mid back pain on right side Polycystic ovaries 05/04/2023 9:25 AM EDT DIFFERENTIAL, AUTOMATED Lab Routine Body mass index (BMI) of 50.0 to 59.9 in adult (HCC) Mid back pain on right side Polycystic ovaries 05/04/2023 9:25 AM EDT Health Maintenance Due Date Last Done Comments HIV Screening 2005 Hepatitis C Screening 02/09/2008 Pap Smear 04/21/2019 04/21/2016, 09/08, 10/03/2013 (Done elsewhere) Cervical Cancer Screening 02/09/2020 HPV/Co-Test 02/09/2020 COVID-19 Vaccine (4 - 2023-24 season) 2023 07/02/2021, 10/17/2020, 09/26/2020 *NEPHROLOGY REFERRAL DUE TO RESISTANT HTN 05/04/2023 Depression Screening 06/08/2023 06/08/2022 GFR 12/24/2023 12/23/2022, [...] as of this encounter Visit Diagnoses Diagnosis Body mass index (BMI) of 50.0 to 59.9 in adult (HCC) Polycystic ovaries Mid back pain on right side documented in this encounter Care Teams Coroner'S Juror Relationship Specialty Start Date End Date Phil Pardo MD [address] [place] [address] PCP - General Family Medicine 08/04/21 documented as of this encounter
[2023-06-29] MEDS ORDERED: FERROUS SULFATE 325 MG TAB PO SCH (18:15)
[2023-06-29] MEDS: POTASSIUM CHLORIDE / WTR 10 MEQ/100 ML PLCT IV SCH ×4 (18:24→21:57)
[2023-06-29] MEDS: INSULIN ASPART PER UNIT CHARGE SC SCH ×2 (18:29→20:51)
[2023-06-29 18:52] LABS: Appearance Urine Cloudy (Clear); Bacteria Urine Automated Negative (Negative); Blood Urine 3+ (Negative); Color Urine Dark Yellow; Epithelial Cell Urine Auto >30 /lpf (0-5); Glucose Urine UA Negative (Negative); Ketones Urine 1+ (Negative); Leukocyte Esterase Urine Trace (Negative); Nitrite Urine Negative (Negative); Protein Urine Trace (Negative); RBC Urine Automated >30 /hpf (0-4); Specific Gravity Urine 1.029 (1.000-1.030); Urobilinogen Urine Negative (Negative); pH Urine 5.5 (4.5-7.5)
[2023-06-29 19:55] LABS: Bilirubin Urine 1+ (Negative)
[2023-06-29] MEDS ORDERED: metFORMIN HCL 500 MG TAB PO SCH (21:00)
[2023-06-29] MEDS: KETOROLAC TROMETHAMINE 15 MG/ML VIAL IV PRN (23:59)
[2023-06-30] MEDS: KETOROLAC TROMETHAMINE 15 MG/ML VIAL IV PRN (07:14)
[2023-06-30] MEDS: INSULIN ASPART PER UNIT CHARGE SC SCH ×4 (08:07→20:35)
[2023-06-30] MEDS: METOPROLOL SUCC 50MG EXT REL TAB PO SCH (08:08)
[2023-06-30] MEDS: hydroCHLOROthiazide 25 MG TAB PO SCH (08:09)
[2023-06-30] MEDS: amLODIPine BESYLATE 5 MG TAB PO SCH (08:09)
[2023-06-30] MEDS: PANTOprazole 40 MG TAB PO SCH (08:09)
[2023-06-30 08:10] LABS: Hematocrit (blood only) 37.7 % (37.0-47.0); Hemoglobin 12.5 g/dl (12.0-16.0); Mean Corpuscular Hgb Conc 33.2 g/dL (32.0-36.0); Mean Corpuscular Volume 90.6 fL (80.0-100.0); Mean Platelet Volume 10.5 fL (9.4-12.4); Platelet Count 438 K/uL (130-400); RDW Coefficient of Variation 12.5 % (11.5-14.5); RDW Standard Deviation 41.7 fL (36.4-46.3); Red Blood Count 4.16 M/uL (4.20-5.40); White Blood Count 12.76 K/ul (4.8-10.8)
--- NOTE | 2023-06-30 08:17 | Urology Progress Note ---
Date of Service June 30, 2023 Assessment & Plan (1) Calculus of proximal left ureter: (2) Renal colic: Plan: 33yo F admitted for left renal colic secondary to a 4 mm obstructing left UPJ stone. She is afebrile and hemodynamically stable Labs showcreatinine 0.99, WBC 12.76, hemoglobin 12.5 Cath UA w/ blood, trace LE, >30 epithelials and was negative for bacteria Urine culture pending Patient on IV ceftriaxonefollow culture and narrow per sensitivity data when available Discussed options for stone management including trial of passage with medical expulsive therapy versus surgical intervention inpatient/outpatient Discussed option for left ureteral stent placement acutely, discussed need for stone treatment at a later date We discussed that a 4 mm stone has a decent probability of passing spontaneously without needing surgical intervention After discussion, she elects trial of passage, which is reasonable Recommend continue supportive care and antibiotics per hospital medicine Can discharge to home with Tamsulosin, antiemetics, and prn analgesia when medically stable Will arrange outpatient follow-up with our service for stone management Case reviewed with Dr. Ballesteros, urologist environmental air specialist will sign off Admission and Anticipated Discharge Date Admission Date: June 29, 2023 Subjective 33yo F with past medical history of HTN, morbid obesity, PCOS, and nephrolithiasis presented to the emergency department on 06/29/23 with left flank pain and associated nausea and vomiting. In ED, she was afebrile and hemodynamically stable. CTAP notable for an obstructing 4 mm left UPJ stone with mild left hydronephrosis. Labs showed - creatinine 0.84, Potassium 3.0, WBC 10.42, Hgb 12.5, platelets 567. Urinalysis with 3+ blood, 3+ leukocyte esterases, >30 WBC, >30 RBC, >30 epithelial cells, 1+ bacteria. Repeat UA (?via cath specimen) showed 3+ blood, trace leukocyte esterases, >30 RBC, >30 epithelial cells, negative for bacteria. Urine was negative. ED course: IV fluids, Phenergan, Zofran, Toradol, IV Potassium, ceftriaxone. Patient seen and examined at bedside. Currently appears comfortable and in no distress. Reports left flank discomfort much better since arrival, currently rated at 1/10. Reports episode of emesis around midnight. Denies nausea/vomiting at present. Voiding spontaneously, no dysuria. Has noted hematuria intermittently. No fever or chills. Currently NPO. Prior history of stones. She has passed a stone spontaneously in the past. No prior surgical intervention for stones. Review of Systems Review of Systems: All systems reviewed & are unremarkable except as noted in HPI & below Physical Exam Physical Exam: General: Obese, well-appearing, no acute distress HEENT: Normocephalic Pulmonary: Nonlabored respirations Abdomen: Nondistended Extremities: Moves all 4 spontaneously Neuro: No gross deficits Psych: alert and oriented, normal mood Skin: Warm, dry, no rashes noted Results & Data Vital Signs (Past 12 Hours) Vital Signs Temp Pulse Pulse Resp BP Pulse Ox O2 Del Method 06/30/23 07:51 36.3 C L 92 H 16 127/88 99 Room Air 06/30/23 06:48 81 06/30/23 04:51 36.4 C L 93 H 18 103/64 95 Room Air 06/29/23 23:21 36.9 C 75 17 136/85 96 Room Air 06/29/23 21:58 117 H 06/29/23 20:20 36.6 C 85 18 141/84 H 95 Room Air PG Care Time/CCT Total # of Minutes Spent Total Time Spent with Patient: Total time spent is greater than 50% in coordination of care (as documented) at patient's floor/unit and/or counseling patient: Coding Diagnoses Calculus of proximal left ureter N20.1 Renal colic N23
[2023-06-30 09:00] LABS: Calcium 7.7 mg/dl (8.6-10.3)
[2023-06-30 09:05] LABS: BUN Creatinine Ratio 12.1 (10-20); Creatinine Clr Calc Pharmacy 118.4 ml/min; Est GFR (African American) 86.8 ml/min; Est GFR (Non-African American) 74.9 ml/min
--- NOTE | 2023-06-30 09:16 | Urology Consultation ---
Date of Consultation June 30, 2023 Assessment & Plan (1) Calculus of proximal left ureter: (2) Renal colic: 33yo F admitted for left flank pain, nausea and vomiting secondary to a 4 mm obstructing left UPJ stone. She is afebrile and hemodynamically stable Subjectively feeling much better today Labs showcreatinine 0.99, WBC 12.76, hemoglobin 12.5 Cath UA w/ blood, trace LE, >30 epithelials and was negative for bacteria Urine culture pending Patient on IV ceftriaxonefollow culture and narrow per sensitivity data when available Discussed options for stone management including trial of passage with medical expulsive therapy versus surgical intervention inpatient/outpatient Discussed option for left ureteral stent placement acutely, discussed need for stone treatment at a later date We discussed that a 4 mm stone has a decent probability of passing spontaneously without needing surgical intervention After discussion, she elects trial of passage, which is reasonable Recommend continue supportive care and antibiotics per hospital medicine Can discharge to home with Tamsulosin, antiemetics, and prn analgesia when medically stable Will arrange outpatient follow-up with our service for stone management Case reviewed with Dr. Ballesteros, urologist occupational therapy professor will sign off History of Present Illness Attending Physician: Pratik Jordan MD History of Present Illness 33yo F with past medical history of HTN, morbid obesity, PCOS, and nephrolithiasis presented to the emergency department on 06/29/23 with left flank pain and associated nausea and vomiting. In ED, she was afebrile and hemodynamically stable. CTAP notable for an obstructing 4 mm left UPJ stone with mild left hydronephrosis. Labs showed - creatinine 0.84, Potassium 3.0, WBC 10.42, Hgb 12.5, platelets 567. Urinalysis with 3+ blood, 3+ leukocyte esterases, >30 WBC, >30 RBC, >30 epithelial cells, 1+ bacteria. Repeat UA (?via cath specimen) showed 3+ blood, trace leukocyte esterases, >30 RBC, >30 epithelial cells, negative for bacteria. Urine was negative. ED course: IV fluids, Phenergan, Zofran, Toradol, IV Potassium, ceftriaxone. Patient seen and examined at bedside. Currently appears comfortable and in no distress. Reports left flank discomfort much better since arrival, currently rated at 1/10. Reports episode of emesis around midnight. Denies nausea/vomiting at present. Voiding spontaneously, no dysuria. Has noted hematuria intermittently. No fever or chills. Currently NPO. Prior history of stones. She has passed a stone spontaneously in the past. No prior surgical intervention for stones. Allergies Allergy/AdvReac Type Severity Reaction Status Date / Time No Known Allergies Allergy Unverified 10/27/19 10:03 Home Medications Medication Instructions Recorded Confirmed Type omeprazole 20 mg tablet,delayed 20 mg PO QAM 05/18/19 06/29/23 History release ondansetron 4 mg disintegrating 4 mg PO Q8H PRN nausea and 10/27/19 06/29/23 Rx tablet vomiting #10 tabs amlodipine 5 mg tablet 5 mg PO QAM 06/29/23 06/29/23 History hydrochlorothiazide 25 mg tablet 25 mg PO QAM 06/29/23 06/29/23 History iron 1 tab PO .EVERY OTHER DAY 06/29/23 06/29/23 History metformin 500 mg tablet 500 mg PO BID 06/29/23 06/29/23 History metoprolol succinate 100 mg 100 mg PO QAM 06/29/23 06/29/23 History tablet,extended release 24 hr Patient History Medical History Hyperinsulinemia Iron deficiency Polycystic ovaries Obesity, morbid, BMI 40.0-49.9 HTN (hypertension) Kidney stones Stomach problems Surgical History Hx of cholecystectomy Family History Other Diabetes Social History Smoking Status: Never smoker Hx Alcohol Use: No Hx Substance Use: No Preferred Language: [place] Current Living Situation: Family Feels Safe at Home: Yes Review of Systems Review of Systems: All systems reviewed & are unremarkable except as noted in HPI & below Physical Exam Physical Exam: General: Obese, well-appearing, no acute distress HEENT: Normocephalic, mucous membranes moist Pulmonary: Nonlabored respirations Abdomen: Nondistended Extremities: Moves all 4 spontaneously Neuro: No gross deficits Psych: alert and oriented, normal mood Skin: Warm, dry, no rashes noted Results & Data Vital Signs (Past 12 Hours) Vital Signs Temp Pulse Pulse Resp BP Pulse Ox O2 Del Method 06/30/23 07:51 36.3 C L 92 H 16 127/88 99 Room Air 06/30/23 06:48 81 06/30/23 04:51 36.4 C L 93 H 18 103/64 95 Room Air 06/29/23 23:21 36.9 C 75 17 136/85 96 Room Air 06/29/23 21:58 117 H PG Care Time/CCT Total # of Minutes Spent Total Time Spent with Patient: Total time spent is greater than 50% in coordination of care (as documented) at patient's floor/unit and/or counseling patient: Coding Level of Care Code 09093 IN/OBS CONSULT LVL 3,45M Diagnoses Calculus of proximal left ureter N20.1 Renal colic N23
[2023-06-30] MEDS ORDERED: cefTRIAXone SODIUM 2,000 MG in DEXTROSE 5 % MINI-B 50 ML IV SCH (12:00)
--- NOTE | 2023-06-30 12:30 | Hospitalist Progress Note ---
Date of Service June 30, 2023 Assessment & Plan (1) Kidney stones: Plan: Patient presented to the hospital with left flank pain, nausea and vomited. CT abdomen and pelvis shows 4 mm obstructing stone within the left ureteropelvic junction. Urinalysis suggestive of infection. Mild leukocytosis present BUN/creatinine within normal limits. Urology recommendation appreciated; conservative management for spontaneous passage of urine. Started on tamsulosin. Encourage oral water intake. Continue on IV antibiotic. Follow-up on urine culture. CT abdomen and pelvis also shows 4 mm subpleural nodule on the right minor fissure. Discussed the finding with patient. Patient to follow-up as outpatient with primary care doctor and obtain CT chest. (2) HTN (hypertension): Plan: - Metoprolol succinate 100 mg QAM to continue daily (3) Obesity, morbid, BMI 40.0-49.9: Plan: Follow-up with primary care doctor regarding different treatment approaches. (4) Hypokalemia: Plan: - On hydrochlorothiazide at home. 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 Possible UTI. Continue IV antibiotics. Possible discharge in next few days. Please note the above document was generated using voice recognition software. It may contain grammatical, syntax or spelling errors. Any formal questions or concerns about the content, text or information contained within the body of this dictation should be directly addressed to the provider for clarification Admission and Anticipated Discharge Date Admission Date: June 29, 2023 Subjective Patient seen and examined at bedside. She reports that she is feeling better compared to yesterday. Review of Systems Review of Systems: All systems reviewed & are unremarkable except as noted in Subjective Physical Exam Physical Exam: Constitutional: Awake alert oriented x 3; not in any distress. Morbidly obese. Respiratory: Bilateral vesicular breath sound. Cardiovascular: RRR, no murmur, no edema Vessels: no JVD or carotid bruit Chest: normal inspection of chest Abdomen: Soft, nontender. Musculoskeletal: no cyanosis or clubbing, extremities motor strength 5/5 Skin: no rashes, warm and dry normal turgor Neurologic: PERRL, EOMI, accommodation nl, no face palsy, no dysarthria CN's II- XI intact bilaterally and moves all extremities Psychiatric: A+Ox3, euthymic affect Results & Data Results & Data Vital Signs (Past 12 Hours) Vital Signs Temp Pulse Pulse Resp BP Pulse Ox O2 Del Method 06/30/23 12:04 36.7 C 86 16 130/85 96 Room Air 06/30/23 07:51 36.3 C L 92 H 16 127/88 99 Room Air 06/30/23 06:48 81 06/30/23 04:51 36.4 C L 93 H 18 103/64 95 Room Air Laboratory Results Laboratory Results WBC 12.76 K/ul (4.8-10.8) H 06/30/23 07:41 RBC 4.16 M/uL (4.20-5.40) L 06/30/23 07:41 Hgb 12.5 g/dl (12.0-16.0) 06/30/23 07:41 Hct 37.7 % (37.0-47.0) 06/30/23 07:41 MCV 90.6 fL (80.0-100.0) 06/30/23 07:41 MCH 30.0 pg (25.0-34.0) 06/30/23 07:41 MCHC 33.2 g/dL (32.0-36.0) 06/30/23 07:41 RDW Std Deviation 41.7 fL (36.4-46.3) 06/30/23 07:41 RDW Coeff of Ashakn 12.5 % (11.5-14.5) 06/30/23 07:41 Plt Count 438 K/uL (130-400) H 06/30/23 07:41 MPV 10.5 fL (9.4-12.4) 06/30/23 07:41 Immature Gran % (Auto) 0.4 % 06/29/23 11:25 Neut % (Auto) 70.4 % 06/29/23 11:25 Lymph % (Auto) 18.9 % 06/29/23 11:25 [place] % (Auto) 8.7 % 06/29/23 11:25 Eos % (Auto) 1.0 % 06/29/23 11:25 Baso % (Auto) 0.6 % 06/29/23 11:25 Neut # (Auto) 7.34 K/uL (1.40-6.50) H 06/29/23 11:25 Lymph # (Auto) 1.97 K/uL (1.20-3.40) 06/29/23 11:25 [place] # (Auto) 0.91 K/uL (0.11-0.59) H 06/29/23 11:25 Eos # (Auto) 0.10 K/uL (0.00-0.50) 06/29/23 11:25 Baso # (Auto) 0.06 K/uL (0.00-0.20) 06/29/23 11:25 Immature Gran # (Auto) 0.04 K/uL (0.01-0.20) 06/29/23 11:25 Sodium 140 mmol/L (136-145) 06/30/23 07:41 Potassium 3.0 mmol/L (3.5-5.1) L 06/30/23 07:41 Chloride 105 mmol/L (98-107) 06/30/23 07:41 Carbon Dioxide 28 mmol/L (21-32) 06/30/23 07:41 Anion Gap 7 (3-11) 06/30/23 07:41 BUN 12 mg/dl (6-23) 06/30/23 07:41 Creatinine 0.99 mg/dl (0.6-1.2) 06/30/23 07:41 Est Cr Clr Drug Dosing 118.4 ml/min 06/30/23 07:41 Est GFR ( Amer) 86.8 ml/min 06/30/23 07:41 Est GFR (Non-Af Amer) 74.9 ml/min 06/30/23 07:41 BUN/Creatinine Ratio 12.1 (10-20) 06/30/23 07:41 Glucose 98 mg/dl (70-99(Fasting)) 06/30/23 07:41 POC Glucose 101 mg/dl (70-99) H 06/30/23 11:53 Calcium 7.7 mg/dl (8.6-10.3) L 06/30/23 07:41 Total Bilirubin 0.8 mg/dl (0.2-1.0) 06/29/23 11:25 AST 16 U/L (13-39) 06/29/23 11:25 ALT 22 U/L (7-52) 06/29/23 11:25 Alkaline Phosphatase 75 U/L (34-104) 06/29/23 11:25 Total Protein 7.7 gm/dl (6.0-8.3) 06/29/23 11:25 Albumin 4.0 gm/dl (3.4-5.0) 06/29/23 11:25 Globulin 3.7 gm/dl (2.5-4.0) 06/29/23 11:25 Albumin/Globulin Ratio 1.1 (0.9-2) 06/29/23 11:25 Lipase 39 U/L (11-82) 06/29/23 11:25 HCG, Qual Negative (Negative) 06/29/23 11:25 Urine Color Dark Yellow 06/29/23 Unknown Urine Appearance Cloudy (Clear) A 06/29/23 Unknown Urine pH 5.5 (4.5-7.5) 06/29/23 Unknown Ur Specific [place] 1.029 (1.000-1.030) 06/29/23 Unknown Urine Protein Trace (Negative) H 06/29/23 Unknown Urine Glucose (UA) Negative (Negative) 06/29/23 Unknown Urine Ketones 1+ (Negative) H 06/29/23 Unknown Urine Blood 3+ (Negative) H 06/29/23 Unknown Urine Nitrite Negative (Negative) 06/29/23 Unknown Urine Bilirubin 1+ (Negative) H 06/29/23 Unknown Urine Urobilinogen Negative (Negative) 06/29/23 Unknown Ur Leukocyte Esterase Trace (Negative) H 06/29/23 Unknown Urine WBC (Auto) 1-5 /hpf (0-5) 06/29/23 Unknown Urine RBC (Auto) >30 /hpf (0-4) H 06/29/23 Unknown U Hyaline Cast (Auto) Not Reportable 06/29/23 14:30 U Epithel Cells (Auto) >30 /lpf (0-5) H 06/29/23 Unknown Urine Bacteria (Auto) Negative (Negative) 06/29/23 Unknown Impressions Abdomen/Pelvis CT 06/29/23 11:[address] WITHOUT CONTRAST CT DOSE: 1648.11 mGy.cm HISTORY: left flank pain TECHNIQUE: Multiaxial CT images of the abdomen and pelvis were performed without contrast. A dose lowering technique was utilized adhering to the principles of ALARA. COMPARISON STUDY: Abdomen and pelvis CT 04/22/2023. FINDINGS: Mild elevation of the right hemidiaphragm with right basilar linear densities consistent with subsegmental atelectasis. This remains unchanged. Stable 4 mm subpleural nodule on the right minor fissure on image 20. No pneumoperitoneum. No pneumatosis. No acute fractures. Mild hepatic steatosis. Cholecystectomy. The unenhanced pancreas, spleen, and adrenal glands are unremarkable. No renal calculi. There is mild left hydronephrosis secondary to an obstructing 4 mm stone within the left ureteropelvic junction on image 212. No retroperitoneal lymphadenopathy. Normal caliber abdominal aorta. The bladder is decompressed and not well evaluated. The uterus is unremarkable. Hypodense lesions seen within the bilateral ovaries/adnexa, unchanged. The largest on the right measures approximately 3.9 cm. These favor ovarian cysts as seen on the prior pelvic ultrasound. Smaller hypodense lesions have a tubular appearance. Therefore, this could represent bilateral hydrosalpinges. No pelvic free fluid. No bowel wall thickening or obstruction. Normal appendix. IMPRESSION: 1. A 4 mm obstructing stone within the left ureteropelvic junction resulting in mild left hydronephrosis. 2. Hepatic steatosis. 3. Cholecystectomy. 4. Stable 4 mm subpleural nodule on the right minor fissure. This is indeterminate but likely benign given the patient's age. 5. Hypodense lesions seen within the bilateral ovaries/adnexa, unchanged. The largest on the right measures approximately 3.9 cm. These favor ovarian cysts as seen on the prior pelvic ultrasound. Smaller hypodense lesions have a tubular appearance. Therefore, this could represent bilateral hydrosalpinges. ACT 112: Negative or not required by law. Electronically signed by: Don Chua M.D. 06/29/2023 12:58 PM Chest X-Ray 06/29/23 11:44 XR chest 1V portable HISTORY: left flank pain COMPARISON: Chest 02/26/2010. FINDINGS: No pneumothorax. No pleural effusions. The heart is normal in size. The left lung is clear. There is elevation of the right hemidiaphragm with right basilar linear densities consistent with subsegmental atelectasis. IMPRESSION: Elevated right hemidiaphragm with right basilar subsegmental atelectasis. ACT 112: Negative or not required by law. Electronically signed by: Don Chua M.D. 06/29/2023 1:36 PM
[2023-06-30] MEDS ORDERED: TAMSULOSIN HCL 0.4 MG CAP PO ONE (12:34)
[2023-06-30] MEDS: POTASSIUM CHLORIDE CRTAB 20 MEQ TABCR PO SCH ×2 (13:00→20:36)
[2023-06-30] MEDS ORDERED: TAMSULOSIN HCL 0.4 MG CAP PO SCH (21:00)
[2023-07-01 08:16] LABS: Hematocrit (blood only) 39.9 % (37.0-47.0); Hemoglobin 13.3 g/dl (12.0-16.0); Mean Corpuscular Hemoglobin 30.2 pg (25.0-34.0); Mean Corpuscular Hgb Conc 33.3 g/dL (32.0-36.0); Mean Corpuscular Volume 90.7 fL (80.0-100.0); Mean Platelet Volume 11.1 fL (9.4-12.4); Platelet Count 344 K/uL (130-400); RDW Coefficient of Variation 12.7 % (11.5-14.5); RDW Standard Deviation 42.2 fL (36.4-46.3); White Blood Count 8.75 K/ul (4.8-10.8)
[2023-07-01] MEDS: amLODIPine BESYLATE 5 MG TAB PO SCH (08:23)
[2023-07-01] MEDS: hydroCHLOROthiazide 25 MG TAB PO SCH (08:23)
[2023-07-01] MEDS: PANTOprazole 40 MG TAB PO SCH (08:23)
[2023-07-01] MEDS: METOPROLOL SUCC 50MG EXT REL TAB PO SCH (08:23)
[2023-07-01 08:24] LABS: Basophils # (auto) 0.07 K/uL (0.00-0.20); Basophils % (auto) 0.8 %; Eosinophils # (auto) 0.23 K/uL (0.00-0.50); Eosinophils % (auto) 2.6 %; Immature Granulocytes # (auto) 0.03 K/uL (0.01-0.20); Immature Granulocytes % (auto) 0.3 %; Lymphocytes # (auto) 2.11 K/uL (1.20-3.40); Lymphocytes % (auto) 24.1 %; Monocytes # (auto) 0.92 K/uL (0.11-0.59); Monocytes % (auto) 10.5 %; Neutrophils # (auto) 5.39 K/uL (1.40-6.50); Neutrophils % (auto) 61.7 %; RBC Morphology Unremarkable
[2023-07-01] MEDS: POTASSIUM CHLORIDE CRTAB 20 MEQ TABCR PO SCH (08:24)
[2023-07-01 08:25] LABS: BUN Creatinine Ratio 15.5 (10-20); Calcium 8.5 mg/dl (8.6-10.3); Creatinine Clr Calc Pharmacy 201.1 ml/min; Est GFR (African American) 140.4 ml/min; Est GFR (Non-African American) 121.1 ml/min; Potassium 3.5 mmol/L (3.5-5.1)
--- NOTE | 2023-07-01 14:14 | Discharge Summary ---
Date of Service July 01, 2023 Admission HPI Per Admitting Provider This is a 33 yo F with PMHx UTI, morbid obesity with BMI of 44.7, hyperinsulinemia on metformin, HTN, iron deficiency, polycystic ovaries, who presents to the hospital with left flank pain. States she woke up with left sided flank pain around 0530 this morning which was associated with nausea and vomiting. She has proceeded to be vomiting throughout the day with waxing and waning pain. Pt took aleve this morning but didn't help. She was unable to take her other medications due to nausea. Mother is at bedside and supports the history. Pt notes that she previously had one kidney stone, but that this feels worse. Denies any fever, chills, but admits to having sweats. CT abd/pelvis reviewed and shows a 4 mm obstructing stone with mild left sided hydronephrosis. Afebrile, WBC of 10.42 on admission. Cr and BUN are stable at 0.84/15. Admission Exam Per Admitting Provider General: awake, alert, no apparent distress, morbidly obese white female Head: Normocephalic, atraumatic ENT: PERRL, EOMI, no pharyngeal exudate, mucous membranes moist Chest: Clear to auscultation, on room air, no adventitious breath sounds Cardiac: Regular rate and rhythm, no murmur, no JVD, normal peripheral pulses, good capillary refill Abdominal: NABS x 4 quadrants, soft, nondistended, nontender to palpation, no rebound or guarding Back: CVA tenderness present on Left side Extremities: Normal inspection, no peripheral edema or erythema, calfs nontender to palpation Psych: Normal mood and affect Neuro: AAO x 3, strength intact bilaterally and rated 5/5, no motor deficits, speech is clear, no peripheral sensory deficits Principal Diagnosis Kidney stone Discharge Exam Constitutional: Awake alert oriented x 3; not in any distress. Morbidly obese. Respiratory: Bilateral vesicular breath sound. Cardiovascular: RRR, no murmur, no edema Vessels: no JVD or carotid bruit Chest: normal inspection of chest Abdomen: Soft, nontender. Musculoskeletal: no cyanosis or clubbing, extremities motor strength 5/5 Skin: no rashes, warm and dry normal turgor Neurologic: PERRL, EOMI, accommodation nl, no face palsy, no dysarthria CN's II- XI intact bilaterally and moves all extremities Psychiatric: A+Ox3, euthymic affect Discharge Data Allergies Allergy/AdvReac Type Severity Reaction Status Date / Time No Known Allergies Allergy Unverified 10/27/19 10:03 Consultations 06/29/23 16:08 ED Decision to Admit Stat 06/29/23 17:58 Consult Urology Routine Ordered Studies 06/29/23 11:44 CT abd pelvis wo con Stat Hospital Course (1) Kidney stones: Patient presented to the hospital with left flank pain, nausea and vomited. CT abdomen and pelvis shows 4 mm obstructing stone within the left ureteropelvic junction. Urinalysis suggestive of infection. Mild leukocytosis present BUN/creatinine within normal limits. Urology recommendation appreciated; conservative management for spontaneous passage of urine. Started on tamsulosin. Encourage oral water intake. Patient discharged on Augmentin, tamsulosin. Patient to follow-up with PCP. CT abdomen and pelvis also shows 4 mm subpleural nodule on the right minor fissure. Discussed the finding with patient. Patient to follow-up as outpatient with primary care doctor and obtain CT chest. Total Time Total Time Spent Total Time Spent (In Minutes): 35 Total Time Includes: Examination of the Patient, Discharge Planning, Medication Reconciliation, Communication With Other Providers and Other Discharge Plan Discharge Items Patient Disposition: Home - Self-Care Reason For Visit: KIDNEY STONE, HYDRONEPHROSIS Discharge Diagnosis: Left ureteric stone Condition on Discharge: Fair Activity: Resume your previous activity Non-emergency contact: Primary Care Provider Call non-emergency contact if: you have any medication questions and your symptoms worsen Follow-up/Referrals: Phil Pardo MD [Primary Care Provider] - (Date & Time 07/06/2023 3:00 PM Provider Phil Pardo MD Department [facility] ) Diet: Regular Addtl Attending Provider Instructions: You were admitted to the hospital due to left ureteral stone. You were seen by urology during the hospitalization. Please start taking tamsulosin 0.4 mg at night. It will help with the passage of the stone. Please drink 3 L of water every day till the stone passes. Urology will call you with an appointment. You are also prescribed Augmentin (antibiotic) for possible urine infection. The urine culture is still pending. You can take Tylenol 500 mg every 6 hours for mild pain. You are also prescribed ibuprofen 600 mg as needed every 8 hours for pain as well. An appointment will be set up with your primary care doctor for sometime next week. The CT abdomen and pelvis showed of 4 mm subpleural nodule on the right minor fissure. You will need follow-up CT scan of the chest as outpatient. Please discuss this with your primary care doctor. Pending Studies at Discharge: No Stand-Alone Forms: My [facility], Smoking Cessation Medications and DC Order Prescriptions: New tamsulosin 0.4 mg capsule 0.4 mg PO HS Qty: 30 0RF amoxicillin-pot clavulanate 875-125 mg tablet 1 tab PO BID 5 Days Qty: 10 0RF potassium chloride 20 mEq tablet extended release 20 meq PO BID Qty: 30 0RF ibuprofen 600 mg tablet 600 mg PO Q8H PRN (Reason: pain) Qty: 20 0RF Continued omeprazole 20 mg Tablet,Delayed Release (Dr/Ec) 20 mg PO QAM metformin 500 mg tablet 500 mg PO BID metoprolol succinate 100 mg tablet extended release 24 hr 100 mg PO QAM amlodipine 5 mg tablet 5 mg PO QAM hydrochlorothiazide 25 mg tablet 25 mg PO QAM iron 1 tab PO .EVERY OTHER DAY ondansetron 4 mg tablet,disintegrating 4 mg PO Q8H PRN (Reason: nausea and vomiting) Qty: 10 0RF Discharge Orders: Discharge Order (Routine); Ordered 07/01/23 Ordered By: Pratik Jordan Admission Data Admit Date/Time: 06/29/23 16:12 Attending Provider: Pratik Jordan Admit Provider: Valerie Fraire Primary Care Provider: Phil Pardo Other Providers: Valerie Fraire; Edin Lugo Other Interventions: Discharge Summary Assessment (RN) Last Done: 07/01/23 08:26
== END 2023-07-01 08:42 | disposition home or self-care (01) | DRG 694 ==
LOC: ED 10:54 → 2N 16:12 → SUATTDRO 16:12 → 2N 17:40